=== PATIENT | female | born 1960 | race Caucasian/White ===

== ENCOUNTER → 2019-12-24 08:17 | Outpatient (CLI) | payer OTHER, SELFPAY ==
[2019-12-24 08:50] LABS: Add Manual Diff / Slide Review NO; Basophils Absolute Auto 0 /uL (0-100); Basophils Percent Auto 0.2 % (0-2); Eosinophils Absolute Auto 400 /uL (0-450); Eosinophils Percent Auto 5.3 % (2-4); Hematocrit 41.4 % (36-46); Lymphocytes Absolute Auto 3800 /uL (1100-4500); Lymphocytes Percent Auto 53.9 % (25-40); Mean Corpuscular HGB Conc 33.8 % (30-36); Mean Corpuscular Hemoglobin 29.9 PG (26-34); Mean Corpuscular Volume 88.6 fL (80-100); Monocytes Absolute Auto 400 /uL (0-900); Neutrophils Absolute Auto 2500 /uL (1500-7000); Neutrophils Percent Auto 35.6 % (50-75); Platelet Count 399 X10^3/uL (150-400); Red Blood Cell Count 4.67 X10^6/uL (4.0-5.2); Red Cell Distribution Width 13.8 % (11.6-14.8); White Blood Cell Count 7.1 X10^3/uL (4.5-11.0)
[2019-12-24 09:06] LABS: Appearance Urine UA CLEAR; Bilirubin Urine UA NEGATIVE (NEGATIVE); Color Urine UA YELLOW; Glucose Urine UA NEGATIVE (Negative); Ketones Urine UA TRACE (NEGATIVE); Leukocyte Esterase Urine UA NEGATIVE (NEGATIVE); Nitrite Urine UA NEGATIVE (Negative); Occult Blood Urine UA NEGATIVE (Negative); Protein Urine UA NEGATIVE (Negative); Urobilinogen Urine UA 0.2 E.U./dL (0.2)
[2019-12-24 09:10] LABS: pH Urine UA 7.5 (4.5-8.0)
[2019-12-24 09:16] LABS: Alanine Aminotransferase 11 IU/L (<35); Albumin 4.4 g/dL (3.5-5.0); Albumin Globulin Ratio 1.5 (1.0-2.8); Alkaline Phosphatase 30 U/L (38-126); Aspartate Aminotransferase 19 IU/L (14-36); BUN Creatinine Ratio 28.6 (6-22); Bilirubin Total 0.7 mg/dL (0.2-1.3); Blood Urea Nitrogen 24 mg/dL (7-17); Calcium 9.3 mg/dL (8.4-10.2); Carbon Dioxide 28 mmol/L (22-32); Chloride 100 mmol/L (98-107); Estimated Glomerular Filt Rate > 60.0 mL/min (>60); Glucose 90 mg/dL (70-100); HDL Cholesterol 61 mg/dL (40-60); HEMOLYSIS < 15 (0-50); Potassium 4.7 mmol/L (3.4-5.1); Sodium 135 mmol/L (137-145); Total Protein 7.4 g/dL (6.3-8.2); Triglycerides 138 mg/dL (35-150); Uric Acid 4.7 mg/dL (2.5-6.2)
[2019-12-24 09:19] LABS: High Sensitivity CRP - Cardiac 1.8 mg/L (1.0-3.0)
[2019-12-24 09:20] LABS: Hemoglobin A1C% w Est Avg Glu 5.1 % (4.0-6.0)
[2019-12-24 09:21] LABS: Cholesterol 340 mg/dL (140-199); LDL Cholesterol Calculated 251 mg/dL (<100)
[2019-12-24 10:05] LABS: Free T3, Triiodothyronine Free 1.98 pg/mL (2.77-5.27); Free T4, Direct Thyroxine 1.02 ng/dL (0.78-2.19)
[2019-12-27 15:40] LABS: ANA Screen, IFA Positive (.)
== END ==
PROVIDERS: PCP Nurse Practitioner; Referring Provider Nurse Practitioner; Visit Provider Nurse Practitioner
DX: E28.2 Polycystic ovarian syndrome (principal); E78.5 Hyperlipidemia, unspecified; E88.81 Metabolic syndrome and other insulin resistance; F32.9 Major depressive disorder, single episode, unspecified; G25.0 Essential tremor; G25.81 Restless legs syndrome; R53.82 Chronic fatigue, unspecified; Z78.0 Asymptomatic menopausal state; M79.7 Fibromyalgia
CPT/HCPCS: 36415; 80053; 80061; 81003; 83036; 83525; 84439; 84443; 84481; 84550; 85025; 86038; 86140

== ENCOUNTER → 2021-01-22 08:43 | Outpatient (CLI) | payer OTHER, SELFPAY ==
[2021-01-22 09:36] LABS: Add Manual Diff / Slide Review NO; Basophils Absolute Auto 0 /uL (0-100); Basophils Percent Auto 0.2 % (0-2); Eosinophils Absolute Auto 500 /uL (0-450); Hematocrit 43.2 % (36-46); Hemoglobin 14.4 g/dL (12.0-16.0); Lymphocytes Absolute Auto 4500 /uL (1100-4500); Lymphocytes Percent Auto 47.6 % (25-40); Mean Corpuscular HGB Conc 33.4 % (30-36); Mean Corpuscular Hemoglobin 29.8 PG (26-34); Mean Corpuscular Volume 89.2 fL (80-100); Monocytes Absolute Auto 500 /uL (0-900); Monocytes Percent Auto 5.6 % (3-14); Neutrophils Absolute Auto 3900 /uL (1500-7000); Neutrophils Percent Auto 41.6 % (50-75); Platelet Count 416 X10^3/uL (150-400); Red Blood Cell Count 4.84 X10^6/uL (4.0-5.2); Red Cell Distribution Width 14.2 % (11.6-14.8); White Blood Cell Count 9.5 X10^3/uL (4.5-11.0)
[2021-01-22 09:42] LABS: Hemoglobin A1C% w Est Avg Glu 5.1 % (4.0-6.0)
[2021-01-22 10:07] LABS: Alanine Aminotransferase 8 IU/L (<35); Albumin 4.3 g/dL (3.5-5.0); Albumin Globulin Ratio 1.5 (1.0-2.8); Alkaline Phosphatase 29 U/L (38-126); Aspartate Aminotransferase 17 IU/L (14-36); BUN Creatinine Ratio 29.2 (6-22); Bilirubin Total 0.7 mg/dL (0.2-1.3); Blood Urea Nitrogen 26 mg/dL (7-17); Calcium 9.2 mg/dL (8.4-10.2); Carbon Dioxide 27 mmol/L (22-32); Chloride 101 mmol/L (98-107); Cholesterol 305 mg/dL (140-199); Estimated Glomerular Filt Rate > 60.0 mL/min (>60); Globulin 2.9 g/dL (1.7-4.1); Glucose 94 mg/dL (80-110); HDL Cholesterol 58 mg/dL (40-60); HEMOLYSIS < 15 (0-50); LDL Cholesterol Calculated 216 mg/dL (<100); Potassium 4.1 mmol/L (3.4-5.1); Sodium 135 mmol/L (137-145); Total Protein 7.2 g/dL (6.3-8.2); Triglycerides 156 mg/dL (35-150)
[2021-01-22 10:37] LABS: TSH w/ Reflex to FT4 0.39 uIU/mL (0.47-4.68)
[2021-01-22 11:39] LABS: Free T4, Direct Thyroxine 1.13 ng/dL (0.78-2.19)
== END ==
PROVIDERS: PCP Nurse Practitioner; Referring Provider Nurse Practitioner; Visit Provider Nurse Practitioner
DX: Z00.00 Encounter for general adult medical examination without abnormal findings (principal); E78.5 Hyperlipidemia, unspecified; E88.81 Metabolic syndrome and other insulin resistance; F32.9 Major depressive disorder, single episode, unspecified; R53.82 Chronic fatigue, unspecified
CPT/HCPCS: 36415; 80053; 80061; 83036; 84439; 84443; 85025

== ENCOUNTER → 2021-06-08 12:03 | Outpatient (CLI) | payer OTHER, SELFPAY ==
[2021-06-08 14:47] LABS: Free T3, Triiodothyronine Free 1.96 pg/mL (2.77-5.27); Free T4, Direct Thyroxine 0.93 ng/dL (0.78-2.19)
[2021-06-08 15:00] LABS: Thyroid Stimulating Hormone 0.175 uIU/mL (0.47-4.68)
== END ==
PROVIDERS: PCP Nurse Practitioner; Referring Provider Nurse Practitioner; Visit Provider Nurse Practitioner
DX: R79.89 Other specified abnormal findings of blood chemistry (principal)
CPT/HCPCS: 36415; 84439; 84443; 84481

== ENCOUNTER → 2021-06-08 12:34 | Outpatient (CLI) | payer OTHER, SELFPAY ==
[2021-06-08] MEDS: COVID-19 VACC #3, MRNA(MOD) 50 MCG/0.25 ML VIAL IM (12:38)
== END ==
PROVIDERS: PCP Nurse Practitioner; Visit Provider Internal Medicine
DX: Z23 Encounter for immunization (principal)
CPT/HCPCS: 0013A; 91301

== ENCOUNTER 2021-09-04 10:16 | Emergency (ER) | payer OTHER, SELFPAY ==
[2021-09-04] VITALS (9 sets, daily range): BP systolic 106–159; BP diastolic 57–70; PULSE 55–73; RESP 10–23; TEMP 37.4; O2SAT 97–100; BMI 25.0
--- NOTE | 2021-09-04 10:28 | DI.CT.S_ITS ---
PROCEDURE: CT STROKE INDICATIONS: possible stroke TECHNIQUE: Noncontrast 4.5 mm thick angled axial sections acquired from the foramen magnum to the vertex, with coronal reformats. For radiation dose reduction, the following was used: automated exposure control, adjustment of mA and/or kV according to patient size. COMPARISON: None. FINDINGS: Image quality: Excellent. CSF spaces: Basal cisterns are patent. No extra-axial fluid collections. The ventricles are symmetric in size and shape. Brain: No intracranial bleeds or masses. There is cerebral volume loss for age, with resultant ventricular and sulcal prominence. Slightly more prominent CSF space in the left parietal area is likely congenital or related to focal atrophy. There are mild periventricular and deep white matter chronic small vessel ischemic changes. There is intracranial internal carotid artery atherosclerosis. Skull and face: Calvarium and visualized facial bones appear intact, without suspicious lesions. Sinuses: Visualized sinuses and mastoids are clear. IMPRESSION: 1. No acute intracranial abnormalities. The result was discussed with Dr. Bella on 09/04/2021 at 10:39 a.m. This study fulfills neurological imaging criteria for inclusion or exclusion of acute stroke therapies based on available published neurological guidelines. Dictated by: Jimmy Engle M.D. on 09/04/2021 at 10:41 Approved by: Jimmy Engle M.D. on 09/04/2021 at 10:45
--- NOTE | 2021-09-04 10:28 | DI.RAD.S_ITS ---
PROCEDURE: XR CHEST 1V INDICATIONS: Possible stroke TECHNIQUE: One view of the chest was acquired. COMPARISON: None. FINDINGS: Surgical changes and devices: None. Lungs and pleura: On this semiupright portable chest examination, no large pneumothorax or large pleural effusions are seen. No focal infiltrates are seen. Mediastinum: Mediastinal contours appear normal. Heart size is normal. Bones and chest wall: No suspicious bony lesions. Overlying soft tissues appear unremarkable. IMPRESSION: Portable chest within normal limits. Dictated by: Kirit Caldwell M.D. on 09/04/2021 at 10:27 Approved by: Kirit Caldwell M.D. on 09/04/2021 at 10:27
--- NOTE | 2021-09-04 10:46 | ED_ITS ---
HPI - Neuro Symptoms/Deficit General Chief Complaint: Neuro Symptoms/Deficit Stated Complaint: Poss TIA referred by Natalie Tam Time Seen by Provider: 09/04/21 10:31 Source: patient and family (spouse) Mode of arrival: Wheelchair Limitations: no limitations History of Present Illness HPI Narrative: This is a 60-year-old female with history neurologic disorder that is described as still being worked up, she is being worked up for orthostatic tachycardia and follows with [facility] in [place]. Patient is on pyridostigmine 60 mg b.i.d., fluoxetine, dicyclomine, doxepin, estradiol metop rolol extended release. She states that last night about 8:00 p.m. she is reading her phone when her vision became blurry and assorted she felt like her eyeballs her being squeezed and she had which she describes as some double vision. She states she felt like she was talking weird in her tongue was not working well. She has some paresthesias on her right trunk. She felt dizzy and had vertigo type symptoms but states she does have a history of vertigo but this felt a little different. She performed her own fast exam and did not appreciate any changes to facial droop or weakness. She states her symptoms resolved. She spoke with her her tongue still felt weird but he did not appreciate any changes to her speech. Both she and her states she felt cold and clammy and sweaty. She denies any headaches, chest pain or shortness of breath, no nausea or vomiting currently no diarrhea constipation. She did have any weakness at this time but did feel like her walking was difficult. All her symptoms resolved she got up at 10:00 p.m. and states she was still asymptomatic and then woke up this morning contacted her primary care who recommended she come here for about. She does have a history of lower body lift, she states NSAIDs and aspirin typically give her ulcers. Denies tobacco, no alcohol, she uses CBD and a vape pen but no other recreational drugs. Natalie tam is her primary care provider. On Anticoagulants: No Related Data Home Medications Medication Instructions Recorded Confirmed L carnitine 1,000 mg PO .QD 07/27/19 07/06/21 vitamin E (dl, acetate) 180 mg 400 unit PO DAILY 07/27/19 07/06/21 (400 unit) capsule melatonin 10 mg capsule 10 mg PO BEDTIME PRN 09/29/19 07/06/21 resveratrol-quercetin 100 mg-100 tab PO 07/06/21 07/06/21 mg tablet pyridostigmine bromide 60 mg tablet 45 mg PO BID tab 08/17/21 08/17/21 Previous Rx's Medication Instructions Recorded Disabled Parking Permit See Rx Instructions .ROUTE 10/11/20 .COMPLEX #1 unit estradiol-norethindrone acet 1 1 tab PO DAILY #90 tab 10/23/20 mg-0.5 mg tablet fluoxetine 40 mg capsule 40 mg PO DAILY #90 cap 10/23/20 metformin 500 mg tablet 500 mg PO BID #180 tab 10/23/20 dicyclomine 10 mg capsule 10 mg PO TID PRN #30 cap 08/17/21 doxepin 3 mg tablet 3 mg PO BEDTIME PRN #60 tab 08/17/21 metoprolol succinate 25 mg 25 mg PO DAILY #30 tab 08/17/21 tablet,extended release 24 hr (Toprol XL) Allergies Allergy/AdvReac Type Severity Reaction Status Date / Time aspirin Allergy gastric Verified 09/04/21 10:28 ulcers gluten Allergy Verified 09/04/21 10:28 NSAIDS (Non-Steroidal Allergy gastric Verified 09/04/21 10:28 Anti-Inflamma ulcers Review of Systems Review of Systems ROS Unobtainable: All systems reviewed & are unremarkable except as noted in HPI and below Hematologic/Lymphatic On Anticoagulants: No Patient History Medical History Benign familial tremor CFS (chronic fatigue syndrome) (~2012) Chicken pox (~1969) Depression Dysautonomia orthostatic hypotension syndrome Fibromyalgia Gastric ulcer Hyperlipidemia (~2016) Insomnia Insulin resistance Intermittent pain Myalgic encephalomyelitis PCOS (polycystic ovarian syndrome) POTS (postural orthostatic tachycardia syndrome) Restless leg syndrome Surgical History Anesthesia History of section (~1987) History of surgery (~2014) Family History Father Hypertension Mother Diabetes mellitus History of heart disease Hypertension Mental health problem Sister History of heart disease Mental health problem Hypertension Sister Mental health problem Melanoma Grandfather History of heart disease Grandmother Lung disease Grandfather History of heart disease Grandmother Pneumonia Social History Smoking Status: Never smoker Smoking Status: Never smoker alcohol intake frequency: holidays/special occasions only Substance Use Type: does not use Exam Narrative Exam Narrative: GEN: well nourished, well appearing female, alert and oriented x 3, patient appears to be in mild distress. HEENT: Atraumatic, pupils are equal round reactive to light, extraocular movements are intact, nares are clear, TMs are clear with no fluid, there is no conjunctival pallor. Throat is clear without any exudates, erythema, tonsillar enlargement or uvular deviation, no facial droop. HEART: Regular rate and rhythm without murmur, clicks, rubs. LUNGS:Lungs clear to auscultation, no wheezes, rales, crackles, chest moves symmetrically ABD:bowel sounds normal, soft, non-tender, no guarding, rebound, rigidity, no masses noted, no hepatosplenomegaly :No CVA tenderness MSCL: Non-tender, no muscle atrophy, muscles strength 5/5 upper and lower extr emities, full range of motion. NEURO:CN 2-12 intact, sensation normal, finger nose finger test normal, heel barragan test normal, patient does have a mild tremor which is present particularly left greater than right in her upper extremities. Patient notes she has had this since age 13. SKIN: No rash, erythema or other skin changes. Initial Vital Signs Initial Vital Signs: Vital Signs Temperature 99.3 F 09/04/21 10:22 Pulse Rate 73 09/04/21 10:22 Respiratory Rate 14 09/04/21 10:22 Blood Pressure 159/70 H 09/04/21 10:22 Pulse Oximetry 97 09/04/21 10:22 Scores NIH Stroke Scale Level of Conciousness: Alert, keenly responsive Ask month/age: Answers both questions correctly. Open/close eyes, close hand: Performs both tasks correctly Best gaze horizontal: Normal Visual witt: No visual loss Facial palsy: Normal symetrical movement Left arm drift: No drift for full 10 sec Right arm drift: No drift for full 10 sec Left leg drift: No drift for full 5 sec Right leg drift: No drift for full 5 sec Limb ataxia: Absent Sensory on face/arms/legs: Normal, no sensory loss Best language: No aphasia, normal Dysarthria: Normal Extinction or inattention: No abnormality Total NIH Stroke scale score: 0 Course Orders Ordered: ED Orders 09/04/21 10:28 CT Stroke Stat XR chest 1V Stat EKG-12 Lead Stat 09/04/21 10:45 Complete Blood Count AUTO DIFF Stat Comprehensive Metabolic Panel Stat Partial Thromboplastin Time Stat Prothrombin Time INR Stat Troponin & CK Cardiac Panel Stat 09/04/21 11:41 CT angio head and neck Stat 09/04/21 12:01 Urine Drug Screen, Rapid Stat Discontinued Medications Sodium Chloride (Normal Saline 0.9%) 1,000 mls @ 1,000 mls/hr IV BOLUS ONE Stop: 09/04/21 13:59 Last Infusion: 09/04/21 14:05 Dose: 0 mls/hr Documented by: Admin: 09/04/21 13:16 Dose: 1,000 mls/hr Documented by: VIRY Lorazepam (Lorazepam 0.5 Mg Tablet) 1 mg PO NOW ONE Stop: 09/04/21 14:03 Reevaluation(s) Reevaluation #1: Patient continues to be asymptomatic here in the department. Vital Signs Vital signs: Vital Signs - 8 hr 09/04/21 11:30 09/04/21 12:05 09/04/21 12:27 Pulse Rate 65 63 57 L Respiratory Rate 23 14 11 L Blood Pressure 119/58 L Pulse Oximetry 97 100 97 09/04/21 12:30 09/04/21 13:00 09/04/21 14:05 Pulse Rate 55 L 58 L 60 Respiratory Rate 12 10 L Blood Pressure 110/58 L 106/57 L 113/57 L Pulse Oximetry 97 98 99 MDM - Neuro Symptoms/Deficit Lab Data Result diagrams: 09/04/21 10:45 09/04/21 10:45 Labs: Lab Results 09/04/21 09/04/21 09/04/21 Range/Units 10:45 10:45 10:45 WBC 10.0 (4.5-11.0) X10^3/uL RBC 4.68 (4.0-5.2) X10^6/uL Hgb 14.0 (12.0-16.0) g/dL Hct 40.9 (36-46) % MCV 87.3 (80-100) fL MCH 30.0 (26-34) PG MCHC 34.3 (30-36) % RDW 13.7 (11.6-14.8) % Plt Count 417 H (150-400) X10^3/uL Neut % (Auto) 47.2 L (50-75) % Lymph % (Auto) 42.6 H (25-40) % [place] % (Auto) 5.8 (3-14) % Eos % (Auto) 4.3 H (2-4) % Baso % (Auto) 0.1 (0-2) % Neut # (Auto) 4700 (1952-0815) /uL Lymph # (Auto) 4200 (8268-5983) /uL [place] # (Auto) 600 (0-900) /uL Eos # (Auto) 400 (0-450) /uL Baso # (Auto) 0 (0-100) /uL PT 11.2 (10.1-12.7) SECONDS INR 1.0 (0.9-1.3) APTT 31 (26.4-36.2) SECONDS Sodium 134 L (137-145) mmol/L Potassium 4.2 (3.4-5.1) mmol/L Chloride 101 (98-107) mmol/L Carbon Dioxide 28 (22-32) mmol/L BUN 24 H (7-17) mg/dL Creatinine 0.84 (0.52-1.04) mg/dL Estimated GFR > 60.0 (>60) mL/min BUN/Creatinine Ratio 28.6 H (6-22) Glucose 98 (80-110) mg/dL Calcium 9.3 (8.4-10.2) mg/dL Total Bilirubin 0.6 (0.2-1.3) mg/dL AST 17 (14-36) IU/L ALT 9 (<35) IU/L Alkaline Phosphatase 26 L (38-126) U/L Total Creatine Kinase 36 (30-135) U/L CK-MB (CK-2) TNP CK-MB (CK-2) Rel Index TNP Troponin I < 0.012 (0.01-0.034) ng/mL Total Protein 7.0 (6.3-8.2) g/dL Albumin 4.2 (3.5-5.0) g/dL Globulin 2.8 (1.7-4.1) g/dL Albumin/Globulin Ratio 1.5 (1.0-2.8) U Opiates 300ng/mL cut (Negative) Ur Oxycodone Screen (Negative) Urine Methadone Screen (Negative) Ur Barbiturates Screen (Negative) U Tricyclic Antidepress (Negative) Ur Phencyclidine Scrn (Negative) Ur Amphetamines Screen (Negative) U Methamphetamines Scrn (Negative) Ur MDMA Scrn (Ecstasy) (Negative) U Benzodiazepines Scrn (Negative) Urine Cocaine Screen (Negative) U Marijuana (THC) Screen (Negative) 09/04/21 Range/Units 12:01 WBC (4.5-11.0) X10^3/uL RBC (4.0-5.2) X10^6/uL Hgb (12.0-16.0) g/dL Hct (36-46) % MCV (80-100) fL MCH (26-34) PG MCHC (30-36) % RDW (11.6-14.8) % Plt Count (150-400) X10^3/uL Neut % (Auto) (50-75) % Lymph % (Auto) (25-40) % [place] % (Auto) (3-14) % Eos % (Auto) (2-4) % Baso % (Auto) (0-2) % Neut # (Auto) (6146-1419) /uL Lymph # (Auto) (4704-9773) /uL [place] # (Auto) (0-900) /uL Eos # (Auto) (0-450) /uL Baso # (Auto) (0-100) /uL PT (10.1-12.7) SECONDS INR (0.9-1.3) APTT (26.4-36.2) SECONDS Sodium (137-145) mmol/L Potassium (3.4-5.1) mmol/L Chloride (98-107) mmol/L Carbon Dioxide (22-32) mmol/L BUN (7-17) mg/dL Creatinine (0.52-1.04) mg/dL Estimated GFR (>60) mL/min BUN/Creatinine Ratio (6-22) Glucose (80-110) mg/dL Calcium (8.4-10.2) mg/dL Total Bilirubin (0.2-1.3) mg/dL AST (14-36) IU/L ALT (<35) IU/L Alkaline Phosphatase (38-126) U/L Total Creatine Kinase (30-135) U/L CK-MB (CK-2) CK-MB (CK-2) Rel Index Troponin I (0.01-0.034) ng/mL Total Protein (6.3-8.2) g/dL Albumin (3.5-5.0) g/dL Globulin (1.7-4.1) g/dL Albumin/Globulin Ratio (1.0-2.8) U Opiates 300ng/mL cut Negative (Negative) Ur Oxycodone Screen Negative (Negative) Urine Methadone Screen Negative (Negative) Ur Barbiturates Screen Negative (Negative) U Tricyclic Antidepress Positive H (Negative) Ur Phencyclidine Scrn Negative (Negative) Ur Amphetamines Screen Negative (Negative) U Methamphetamines Scrn Negative (Negative) Ur MDMA Scrn (Ecstasy) Negative (Negative) U Benzodiazepines Scrn Negative (Negative) Urine Cocaine Screen Negative (Negative) U Marijuana (THC) Screen Positive H (Negative) Urine Dip Bedside Urine Glucose Negative Bedside Urine Bilirubin - Negative Bedside Urine Ketone - Negative Urine Specific [place] 1.010 Bedside Urine Occult Blood - Negative Bedside Urine pH 6.0 Bedside Urine Protein - Negative Bedside Urine Urobilinogen - Negative Bedside Urine Nitrite - Negative Bedside Urine Leukocytes - Negative Esterase Imaging Data CT scan - head: Radiologist's Impression: [place] [address] CT Scan Report Signed Patient: Leticia Boateng MR#: [id number] : 1960 Acct:[id number] Age/Sex: 60 / F Date of Service: 09/04/21 Loc: ED Accession Number: [id number] ?? Procedure: CT Stroke Ordering Provider: Avis Bella D.O. PROCEDURE:? CT STROKE ? INDICATIONS:? possible stroke ? TECHNIQUE:? Noncontrast 4.5 mm thick angled axial sections acquired from the foramen magnum to the vertex, with coronal reformats.? For radiation dose reduction, the following was used:? automated exposure control, adjustment of mA and/or kV according to patient size.? ? COMPARISON:? None. ? FINDINGS:? Image quality:? Excellent.? ? CSF spaces:? Basal cisterns are patent.? No extra-axial fluid collections.? The ventricles are symmetric in size and shape.? ? Brain:? No intracranial bleeds or masses.? There is cerebral volume loss for age, with resultant ventricular and sulcal prominence.? Slightly more prominent CSF space in the left parietal area is likely congenital or related to focal atrophy.? There are mild periventricular and deep white matter chronic small vessel ischemic changes.? There is intracranial internal carotid artery atherosclerosis.? ? Skull and face:? Calvarium and visualized facial bones appear intact, without suspicious lesions.? ? Sinuses:? Visualized sinuses and mastoids are clear.? ? IMPRESSION:? ? 1. No acute intracranial abnormalities. ? The result was discussed with Dr. Bella on 09/04/2021 at 10:39 a.m. ? This study fulfills neurological imaging criteria for inclusion or exclusion of acute stroke therapies based on available published neurological guidelines.? ? ? Dictated by: Jimmy Engle M.D. on 09/04/2021 at 10:41 ? ? Approved by: Jimmy Engle M.D. on 09/04/2021 at 10:45?? Chest x-ray: Radiologist's Impression: [place] [address] XRay Report Signed Patient: Leticia Boateng MR#: [id number] : 1960 Acct:[id number] Age/Sex: 60 / F Date of Service: 09/04/21 Loc: ED Accession Number: [id number] ?? Procedure: XR chest 1V Ordering Provider: Avis Bella D.O. PROCEDURE:? XR CHEST 1V ? INDICATIONS:? Possible stroke ? TECHNIQUE:? One view of the chest was acquired.? ? COMPARISON:? None. ? FINDINGS:? ? Surgical changes and devices:? None.? ? Lungs and pleura:? On this semiupright portable chest examination, no large pneumothorax or large pleural effusions are seen.? No focal infiltrates are seen.? ? Mediastinum:? Mediastinal contours appear normal.? Heart size is normal.? ? Bones and chest wall:? No suspicious bony lesions.? Overlying soft tissues appear unremarkable.? ? ? IMPRESSION:? ? Portable chest within normal limits. ? ? ? Dictated by: Kirit Caldwell M.D. on 09/04/2021 at 10:27 ? ? Approved by: Kirit Caldwell M.D. on 09/04/2021 at 10:27?? CTA - brain/neck: Radiologist's Impression: [address] [address] [address] Scan Report Signed Patient: Leticia Boateng MR#: [id number] : 1960 Acct:[id number] Age/Sex: 60 / F Date of Service: 09/04/21 Loc: ED Accession Number: [id number] ?? Procedure: CT angio head and neck Ordering Provider: Avis Bella D.O. PROCEDURE:? CT ANGIO HEAD AND NECK ? INDICATIONS:? double vision. speech change, tingling right side last night ? TECHNIQUE:? Noncontrast images were performed earlier in the day and not repeated.? ? After the administration of intravenous contrast, 1 mm thick sections acquired from the aortic arch through the [place] of [place].? Post-contrast 4.5 mm thick sections then re- acquired from the foramen magnum to the vertex.? 3-dimensional bazopjj-tozkhuadr-mdsfgjtffb (MIP) and/or volume rendering reformats were acquired of the central intracranial vasculature and neck separately. ? COMPARISON:? [facility], CR, XR CHEST 1V, 09/04/2021, 11:05.? [facility], CT, CT STROKE, 09/04/2021, 10:29. ? FINDINGS:? Image quality:? Excellent.? ? BRAIN:? CSF spaces:? Ventricles are normal in size and shape.? Basal cisterns are patent.? No extra-axial fluid collections.? ? Brain:? No midline shift.? No intracranial bleeds or masses.? Villar-white matter interface appears intact.? ? Skull and face:? Calvarium and facial bones appear intact, without suspicious lesions.? Orbits appear normal.? ? Sinuses:? Sinuses and mastoids are clear.? ? HEAD CT ANGIOGRAPHY:? Anterior circulation:? Intracranial internal carotid arteries are normal in size and flow.? There is a diminutive left A1 segment, with a corresponding robust right A1 segment.? This is considered to be a normal developmental variant of the [place] of [place], of typically no clinical consequence.? The flow within the paired anterior cerebral arteries is otherwise normal and symmetric.? The flow within the middle cerebral arteries is normal and symmetric.? The anterior communicating artery is seen.? No aneurysms are seen.? ? Posterior circulation:? Visualized portions of the vertebral arteries demonstrate normal caliber, and join to form a normal appearing basilar artery.? Flow within the posterior cerebral arteries is normal and symmetric.? No aneurysms are seen.? ? NECK CT ANGIOGRAPHY:? Carotid system:? The great vessels demonstrate a conventional anatomy as they arise from the aortic arch.? The origins of the common carotid arteries appear patent.? The common carotid arteries demonstrate normal caliber and courses.? The bifurcation regions demonstrate calcification and irregularity, yet without a hemodynamically significant stenosis.? The internal carotid arteries demonstrate normal calibers and courses.? ? Posterior circulation:? The origins of the vertebral arteries both appear widely patent.? The more superior extracranial portions of both vertebral arteries also demonstrate normal courses and calibers.? They join to form a normal appearing basilar artery.? ? Soft tissues:? Visualized neck soft tissues demonstrate no suspicious abnormalities.? ? Bones:? No suspicious bony lesions.? Visualized cervical spine appears normally aligned.? [id number] cervical spine degenerative changes can be seen. ? IMPRESSION:? No hemodynamically significant stenosis can be seen within the arteries of the head or the arteries neck. ? Any quantitative measurements of stenosis were performed using NASCET criteria.? ? ? Dictated by: Kirit Caldwell M.D. on 09/04/2021 at 11:15 ? ? Approved by: Kirit Caldwell M.D. on 09/04/2021 at 11:17?? ECG Data Attestation: I personally reviewed and interpreted this ECG as follows: Prior ECG tracings: not available for review Interpretation: Sinus rhythm rate of 63 OK 148 QRS is 74 and QTC of 427. No acute ST elevation depression noted. No priors for comparison. MDM Narrative Medical decision making narrative: This is a 60-year-old female comes emergency department for possible TIA but patient states she also has multiple neurologic issues and follows with a neurologist and takes pyridostigmine daily. Patient had some blurred vision possibly double vision, felt like she had some speech changes but never had any facial droop, she has some tingling on her right trunk but no weakness or tingling of upper or lower extremity described. This was last night and had since resolved she did have any additional episodes. She spoke with her primary care physician who referred her to be evaluated. She states that some of the symptoms occur her intermittently and seem to be associated with her disorder which is currently still being worked up. She does have a history of tremors return present H 13 and slowly worsened. Patient a had head CT, angiography and lab work with no acute changes. We discussed that TIA is certainly within the differential but with her neurologic history. Other possibilities are included. Observation was offered but patient defers with plan to follow-up outpatient. All questions answered. Stroke Core Measures Exclusion Criteria TPA in CVA: Symptom Onset >3 or 4.5 Hours Discharge Plan Departure Patient Disposition: Home Clinical Impression: Changes in vision Activity Restrictions/Additional Instructions: Follow up with your physician at your tele-visit on . As discussed your labs and imaging today so far are reassuring. We did discuss observation for further workup but your physician can help facilitate outpatient workup. Your neurologist is also an excellent resource and can help with this as well. You may continue home medications as prescribed. Please return for new or worsening symptoms, new facial droop, weakness, loss of sensation, it will be to lift or move her arm or leg, difficulty with ambulation, new speech changes, vision changes or other new or concerning symptoms. Prescriptions: No Action Disabled Parking Permit See Rx Instructions .ROUTE .COMPLEX Qty: 1 0RF Rx Instructions: I find this patient to be medically disabled and qualify for disabled parking as indicated and signed on the accompanying disabled parking application for individuals. doxepin 3 mg tablet 3 mg PO BEDTIME PRN (Reason: sleep) Qty: 60 3RF Rx Instructions: take 1 tab at bedtime daily, ok to increase to 2 tabs if not effective.. melatonin 10 mg capsule 10 mg PO BEDTIME [id number] Label Comments: 170mg daily fluoxetine 40 mg capsule 40 mg PO DAILY Qty: 90 3RF Rx Instructions: Take 1 cap by mouth daily for depression metformin 500 mg tablet 500 mg PO BID Qty: 180 3RF Rx Instructions: Take 1 tab twice daily for PCOS and insulin resistance estradiol-norethindrone acet 1-0.5 mg tablet 1 tab PO DAILY Qty: 90 3RF Rx Instructions: Take 1 tab by mouth daily for HRT pyridostigmine bromide 60 mg tablet 45 mg PO BID 0RF dicyclomine 10 mg capsule 10 mg PO TID PRN (Reason: diarrhea) Qty: 30 3RF Rx Instructions: Take 1 capsule up to three times per day as needed for diarrhea metoprolol succinate [Toprol XL] 25 mg tablet extended release 24 hr 25 mg PO DAILY Qty: 30 3RF Rx Instructions: Take 1 tab daily for long acting heart rate control L carnitine 1,000 mg PO .QD 0RF vitamin E (dl, acetate) 400 unit capsule 400 unit PO DAILY 0RF resveratrol-quercetin 100-100 mg tablet PO 0RF Referrals: Natalie Tam ARNP [Primary Care Provider] -
[2021-09-04 11:05] LABS: Add Manual Diff / Slide Review NO; Basophils Absolute Auto 0 /uL (0-100); Basophils Percent Auto 0.1 % (0-2); Eosinophils Absolute Auto 400 /uL (0-450); Eosinophils Percent Auto 4.3 % (2-4); Hematocrit 40.9 % (36-46); Lymphocytes Absolute Auto 4200 /uL (1100-4500); Lymphocytes Percent Auto 42.6 % (25-40); Mean Corpuscular HGB Conc 34.3 % (30-36); Mean Corpuscular Volume 87.3 fL (80-100); Monocytes Absolute Auto 600 /uL (0-900); Monocytes Percent Auto 5.8 % (3-14); Neutrophils Absolute Auto 4700 /uL (1500-7000); Neutrophils Percent Auto 47.2 % (50-75); Platelet Count 417 X10^3/uL (150-400); Prothrombin Time 11.2 SECONDS (10.1-12.7); Red Blood Cell Count 4.68 X10^6/uL (4.0-5.2); Red Cell Distribution Width 13.7 % (11.6-14.8)
[2021-09-04 11:07] LABS: PTT Partial Thromboplastin Tim 31 SECONDS (26.4-36.2)
[2021-09-04 11:11] LABS: Alanine Aminotransferase 9 IU/L (<35); Albumin 4.2 g/dL (3.5-5.0); Albumin Globulin Ratio 1.5 (1.0-2.8); Alkaline Phosphatase 26 U/L (38-126); Aspartate Aminotransferase 17 IU/L (14-36); BUN Creatinine Ratio 28.6 (6-22); Bilirubin Total 0.6 mg/dL (0.2-1.3); Blood Urea Nitrogen 24 mg/dL (7-17); Calcium 9.3 mg/dL (8.4-10.2); Carbon Dioxide 28 mmol/L (22-32); Chloride 101 mmol/L (98-107); Creatine Kinase 36 U/L (30-135); Estimated Glomerular Filt Rate > 60.0 mL/min (>60); Globulin 2.8 g/dL (1.7-4.1); Glucose 98 mg/dL (80-110); HEMOLYSIS < 15 (0-50); Potassium 4.2 mmol/L (3.4-5.1); Sodium 134 mmol/L (137-145)
--- NOTE | 2021-09-04 11:19 | PC.NURSE ---
Addendum entered by Blanca Duncan R.N. 09/04/21 11:45: pt also states she has dizziness and tingles normally. last night, all of these symptoms felt different and more. she was concerned, reported to her who states she felt cold and clammy but otherwise she seemed normal. Original Note: pt states she started with blurred vision and then had slurred speech, both have resolved the same
[2021-09-04 11:21] LABS: Troponin I < 0.012 ng/mL (0.01-0.034)
--- NOTE | 2021-09-04 11:41 | DI.CT.S_ITS ---
PROCEDURE: CT ANGIO HEAD AND NECK INDICATIONS: double vision. speech change, tingling right side last night TECHNIQUE: Noncontrast images were performed earlier in the day and not repeated. After the administration of intravenous contrast, 1 mm thick sections acquired from the aortic arch through the [place] of [place]. Post-contrast 4.5 mm thick sections then re-acquired from the foramen magnum to the vertex. 3-dimensional codxkox-yblcjbbwj-irmjzicxzt (MIP) and/or volume rendering reformats were acquired of the central intracranial vasculature and neck separately. COMPARISON: [facility], CR, XR CHEST 1V, 09/04/2021, 11:05. [facility], CT, CT STROKE, 09/04/2021, 10:29. FINDINGS: Image quality: Excellent. BRAIN: CSF spaces: Ventricles are normal in size and shape. Basal cisterns are patent. No extra-axial fluid collections. Brain: No midline shift. No intracranial bleeds or masses. Villar-white matter interface appears intact. Skull and face: Calvarium and facial bones appear intact, without suspicious lesions. Orbits appear normal. Sinuses: Sinuses and mastoids are clear. HEAD CT ANGIOGRAPHY: Anterior circulation: Intracranial internal carotid arteries are normal in size and flow. There is a diminutive left A1 segment, with a corresponding robust right A1 segment. This is considered to be a normal developmental variant of the [place] of [place], of typically no clinical consequence. The flow within the paired anterior cerebral arteries is otherwise normal and symmetric. The flow within the middle cerebral arteries is normal and symmetric. The anterior communicating artery is seen. No aneurysms are seen. Posterior circulation: Visualized portions of the vertebral arteries demonstrate normal caliber, and join to form a normal appearing basilar artery. Flow within the posterior cerebral arteries is normal and symmetric. No aneurysms are seen. NECK CT ANGIOGRAPHY: Carotid system: The great vessels demonstrate a conventional anatomy as they arise from the aortic arch. The origins of the common carotid arteries appear patent. The common carotid arteries demonstrate normal caliber and courses. The bifurcation regions demonstrate calcification and irregularity, yet without a hemodynamically significant stenosis. The internal carotid arteries demonstrate normal calibers and courses. Posterior circulation: The origins of the vertebral arteries both appear widely patent. The more superior extracranial portions of both vertebral arteries also demonstrate normal courses and calibers. They join to form a normal appearing basilar artery. Soft tissues: Visualized neck soft tissues demonstrate no suspicious abnormalities. Bones: No suspicious bony lesions. Visualized cervical spine appears normally aligned. Czks-ky-fjzdnnzv cervical spine degenerative changes can be seen. IMPRESSION: No hemodynamically significant stenosis can be seen within the arteries of the head or the arteries neck. Any quantitative measurements of stenosis were performed using NASCET criteria. Dictated by: Kirit Caldwell M.D. on 09/04/2021 at 11:15 Approved by: Kirit Caldwell M.D. on 09/04/2021 at 11:17
[2021-09-04 12:36] LABS: UR Morphine/Opiate cutoff 300 Negative (Negative); Ur Creatinine Normal (Normal); Ur Specific Gravity Normal (Normal); Urine Amphetamines Negative (Negative); Urine Barbiturates Negative (Negative); Urine Benzodiazepines Negative (Negative); Urine Cocaine Negative (Negative); Urine MDMA Negative (Negative); Urine Methadone Negative (Negative); Urine Methamphetamines Negative (Negative); Urine Oxycodone Negative (Negative); Urine Phencyclidine Negative (Negative); Urine Tetrahydrocannabinol Positive (Negative); Urine Tricyclic Antidepressant Positive (Negative); Urine pH Normal (Normal)
[2021-09-04] MEDS: SODIUM CHLORIDE 0.9% 1,000 ML 1000 ML IV (13:16)
== END 2021-09-04 14:12 | disposition home or self-care (01) ==
PROVIDERS: Emergency Provider Emergency Medicine; PCP Nurse Practitioner
DX: H53.8 Other visual disturbances (principal); R20.2 Paresthesia of skin; R42 Dizziness and giddiness; R03.0 Elevated blood-pressure reading, without diagnosis of hypertension
CPT/HCPCS: 36415; 70450; 70496; 70498; 71045; 80053; 80305; 81003; 82550; 84484; 85025; 85610; 85730; 93005; 93010; 96360; 99284; Q9967

== ENCOUNTER → 2021-09-08 15:13 | Outpatient (CLI) | payer OTHER, SELFPAY ==
--- NOTE | 2021-09-08 15:16 | DI.MRI.S_ITS ---
PROCEDURE: MR HEAD/BRAIN WO CON INDICATIONS: slurred speech, blurred vision, fatigue TECHNIQUE: Noncontrast axial T1 spin echo, axial T2 fast spin echo, sagittal and axial FLAIR, coronal T2 fast spin echo, axial gradient echo, axial diffusion and ADC through the brain. COMPARISON: [facility], CT, CT ANGIO HEAD AND NECK, 09/04/2021, 11:43. [facility], CT, CT STROKE, 09/04/2021, 10:29. FINDINGS: Image quality: Excellent. CSF Spaces: Basal cisterns are patent. No extra-axial fluid collections. Ventricles are normal in size and shape. There is a left frontal paramedian extra-axial right arachnoid cyst measuring 4.0 x 2.4 cm axial by 1.7 cm craniocaudal. Associated displacement of the posterior left superior frontal gyrus noted without edema. Brain: No intracranial masses or hemorrhage. Villar/white matter interface is normal. Brainstem appears normal. No evidence of restricted diffusion. Age-appropriate atrophy and multifocal white matter chronic ischemic change noted.. Normal intravascular flow voids are present. Skull and face: Calvarium has normal marrow signal. Orbits appear normal. Sinuses: Sinuses and mastoids are clear. IMPRESSION: 1. Atrophy and chronic ischemic change without acute infarct, hemorrhage or mass lesion. 2. Incidental extra-axial left frontal 4 cm arachnoid cyst Approved by: Armaan Fields M.D. on 09/08/2021 at 15:30
== END ==
PROVIDERS: PCP Nurse Practitioner; Referring Provider Nurse Practitioner; Visit Provider Nurse Practitioner
DX: G45.9 Transient cerebral ischemic attack, unspecified (principal); G93.0 Cerebral cysts
CPT/HCPCS: 70551

== ENCOUNTER → 2021-09-27 09:14 | Outpatient (CLI) | payer OTHER, SELFPAY ==
[2021-09-27 10:13] LABS: BUN Creatinine Ratio 25.7 (6-22); Blood Urea Nitrogen 19 mg/dL (7-17); Calcium 9.1 mg/dL (8.4-10.2); Carbon Dioxide 27 mmol/L (22-32); Chloride 103 mmol/L (98-107); Estimated Glomerular Filt Rate > 60.0 mL/min (>60); Glucose 89 mg/dL (80-110); HEMOLYSIS < 15 (0-50); Potassium 4.5 mmol/L (3.4-5.1); Sodium 134 mmol/L (137-145)
== END ==
PROVIDERS: PCP Nurse Practitioner; Referring Provider Nurse Practitioner; Visit Provider Nurse Practitioner
DX: E83.42 Hypomagnesemia (principal); E83.51 Hypocalcemia; E87.6 Hypokalemia
CPT/HCPCS: 36415; 80048; 83735

== ENCOUNTER → 2021-10-01 12:10 | Outpatient (CLI) | payer OTHER, SELFPAY ==
--- NOTE | 2021-10-01 12:11 | DI.US.S_ITS ---
PROCEDURE: US THYROID INDICATIONS: Hyperthyroidism TECHNIQUE: Real-time scanning was performed of the thyroid gland, with image documentation. COMPARISON: None. FINDINGS: Right: Thyroid lobe measures 4.5 x 1.8 x 1.4 cm, and demonstrates a small nodule. Left: Thyroid lobe measures 4.1 x 1.6 x 1.3 cm, and demonstrates a small nodule. Isthmus: 2 point mm thick. Nodule number: 1 Location: Left inferior Size: 0.5 x 0.4 x 0.4 cm. Composition: Spongiform Echogenicity: Hyperechoic and anechoic Shape: wider than tall. Margins: Smooth Echogenic foci: None Total points: 1 ACR TI-RADS category: 2 Recommendations: No follow-up necessary. Nodule number: 2 Location: Right superomedial thyroid Size: 0.8 x 0.5 x 0.4 cm. Composition: Predominantly solid Echogenicity: Hypoechoic Shape: wider than tall. Margins: Smooth Echogenic foci: None Total points: 4 ACR TI-RADS category: 4 Recommendations: No follow-up necessary based on size. IMPRESSION: Bilateral thyroid nodules as described above. ACR TI-RADS definitions and recommendations: TI-RADS 1 (benign): 0 points. FNA not needed. TI-RADS 2 (not suspicious): 2 points. FNA not needed. TI-RADS 3 (mildly suspicious): 3 points. * FNA if 2.5 cm or larger, follow up if 1.5 cm or larger (at 1, 3, and 5 years). TI-RADS 4 (moderately suspicious): 4-6 points. * FNA if 1.5 cm or larger, follow up if 1 cm or larger (at 1, 2, 3, and 5 years). TI-RADS 5 (highly suspicious): 7 points or more. * FNA if 1 cm or larger, follow up if 0.5 cm or larger (every year for 5 years). Dictated by: Karis Hester M.D. on 10/01/2021 at 14:44 Approved by: Karis Hester M.D. on 10/01/2021 at 16:53
== END ==
PROVIDERS: PCP Nurse Practitioner; Referring Provider Nurse Practitioner; Visit Provider Nurse Practitioner
DX: E04.2 Nontoxic multinodular goiter (principal); R79.89 Other specified abnormal findings of blood chemistry
CPT/HCPCS: 76536

== ENCOUNTER → 2021-11-09 16:23 | Outpatient (CLI) | payer OTHER, SELFPAY ==
[2021-11-09 18:02] LABS: Appearance Urine UA CLEAR; Bilirubin Urine UA NEGATIVE (NEGATIVE); Color Urine UA YELLOW; Glucose Urine UA TRACE g/dL (Negative); Ketones Urine UA NEGATIVE (NEGATIVE); Leukocyte Esterase Urine UA NEGATIVE (NEGATIVE); Nitrite Urine UA POSITIVE (Negative); Occult Blood Urine UA NEGATIVE (Negative); Protein Urine UA NEGATIVE (Negative); Specific Gravity Urine UA <=1.005 (1.000-1.035); Urobilinogen Urine UA 0.2 E.U./dL (0.2)
[2021-11-09 19:30] LABS: Bacteria Urine None Seen; Culture Indicated Urine Specimen Cultured; RBC Urine None Seen (0-5/HPF); WBC Urine None Seen (0-5/HPF)
== END ==
PROVIDERS: PCP Nurse Practitioner; Referring Provider Nurse Practitioner; Visit Provider Nurse Practitioner
DX: R30.0 Dysuria (principal)
CPT/HCPCS: 81001; 87086

== ENCOUNTER → 2021-11-13 09:38 | Outpatient (CLI) | payer OTHER, SELFPAY ==
[2021-11-13 12:32] LABS: Follicle Stimulating Hormone 3.58 mIU/mL; Luteinizing Hormone 2.72 mIU/mL
[2021-11-13 12:36] LABS: Prolactin 3.2 ng/mL (3.0-18.6)
[2021-11-13 13:47] LABS: Cortisol AM (Before 10AM) 20.2 ug/dL (4.46-22.7)
[2021-11-16 08:57] LABS: Estrogen 413 pg/mL (.)
== END ==
PROVIDERS: PCP Nurse Practitioner; Referring Provider Nurse Practitioner; Visit Provider Nurse Practitioner
DX: E23.7 Disorder of pituitary gland, unspecified (principal); R79.89 Other specified abnormal findings of blood chemistry
CPT/HCPCS: 36415; 82533; 82672; 83001; 83002; 84146; 84403

== ENCOUNTER → 2021-11-20 15:17 | Outpatient (CLI) | payer OTHER, SELFPAY | PROVIDERS: PCP Nurse Practitioner; Referring Provider Nurse Practitioner; Visit Provider Nurse Practitioner | DX: R30.0 Dysuria (principal) | CPT/HCPCS: 87070; 87205 ==

== ENCOUNTER → 2022-07-26 09:46 | Outpatient (CLI) | payer OTHER, SELFPAY ==
[2022-07-26 10:19] LABS: Add Manual Diff / Slide Review NO; Basophils Absolute Auto 0 /uL (0-100); Basophils Percent Auto 0.2 % (0-2); Eosinophils Absolute Auto 600 /uL (0-450); Eosinophils Percent Auto 6.2 % (2-4); Hematocrit 43.7 % (36-46); Hemoglobin 14.9 g/dL (12.0-16.0); Lymphocytes Absolute Auto 4300 /uL (1100-4500); Lymphocytes Percent Auto 47.3 % (25-40); Mean Corpuscular Hemoglobin 30.1 PG (26-34); Mean Corpuscular Volume 88.4 fL (80-100); Monocytes Absolute Auto 500 /uL (0-900); Monocytes Percent Auto 5.6 % (3-14); Neutrophils Absolute Auto 3700 /uL (1500-7000); Neutrophils Percent Auto 40.7 % (50-75); Platelet Count 384 X10^3/uL (150-400); Red Blood Cell Count 4.94 X10^6/uL (4.0-5.2); Red Cell Distribution Width 13.9 % (11.6-14.8)
[2022-07-26 10:28] LABS: Hemoglobin A1C% w Est Avg Glu 5.2 % (4.0-6.0)
[2022-07-26 10:52] LABS: Creatinine Urine Random 131.8 mg/dL
[2022-07-26 10:56] LABS: Microalbumin Urine Random 0.8 mg/dL (0-1.6)
[2022-07-26 10:57] LABS: Alanine Aminotransferase 29 IU/L (<35); Albumin 4.3 g/dL (3.5-5.0); Albumin Globulin Ratio 1.3 (1.0-2.8); Alkaline Phosphatase 38 U/L (38-126); Aspartate Aminotransferase 27 IU/L (14-36); BUN Creatinine Ratio 29.8 (6-22); Bilirubin Total 0.7 mg/dL (0.2-1.3); Blood Urea Nitrogen 25 mg/dL (7-17); Calcium 9.4 mg/dL (8.4-10.2); Carbon Dioxide 26 mmol/L (22-32); Chloride 98 mmol/L (98-107); Estimated Glomerular Filt Rate > 60 mL/min (>60); Globulin 3.2 g/dL (1.7-4.1); Glucose 87 mg/dL (80-110); HDL Cholesterol 56 mg/dL (40-60); HEMOLYSIS < 15 (0-50); Potassium 4.2 mmol/L (3.4-5.1); Sodium 134 mmol/L (137-145); Total Protein 7.5 g/dL (6.3-8.2); Triglycerides 363 mg/dL (35-150)
[2022-07-26 11:06] LABS: Cholesterol 375 mg/dL (140-199); LDL Cholesterol Calculated 246 mg/dL (<100)
[2022-07-26 11:09] LABS: Vitamin D 25 Hydroxy (D3) 75.9 ng/mL (30.0-100.0)
[2022-07-26 11:10] LABS: Free T3, Triiodothyronine Free 3.22 pg/mL (2.77-5.27); Free T4, Direct Thyroxine 0.91 ng/dL (0.78-2.19)
[2022-07-26 11:24] LABS: Thyroid Stimulating Hormone 1.89 uIU/mL (0.47-4.68)
[2022-07-26 11:53] LABS: Hep C Virus Ab w/Reflex Quant NEGATIVE s/c (NEGATIVE)
[2022-07-29 14:54] LABS: Fecal Immunochemical Test Negative (Negative)
== END ==
PROVIDERS: PCP Nurse Practitioner; Referring Provider Nurse Practitioner; Visit Provider Nurse Practitioner
DX: Z00.00 Encounter for general adult medical examination without abnormal findings (principal); E88.81 Metabolic syndrome and other insulin resistance; F33.1 Major depressive disorder, recurrent, moderate; G47.01 Insomnia due to medical condition; R79.89 Other specified abnormal findings of blood chemistry; Z11.59 Encounter for screening for other viral diseases; E67.3 Hypervitaminosis D; Z12.11 Encounter for screening for malignant neoplasm of colon
CPT/HCPCS: 36415; 80053; 80061; 82043; 82274; 82306; 82570; 83036; 84439; 84443; 84481; 85025; 86803

== ENCOUNTER → 2023-01-10 10:05 | Outpatient (CLI) | payer OTHER, SELFPAY ==
--- NOTE | 2023-01-10 10:06 | DI.MG.S_ITS ---
BILATERAL DIGITAL SCREENING MAMMOGRAM 3D/2D WITH CAD: 01/10/2023 CLINICAL: Routine screening. Comparison is made to exams dated: 06/04/2018 mammogram, 07/11/2015 mammogram, and 09/07/2010 mammogram - Outside facility. There are scattered areas of fibroglandular density in both breasts (category b / 25%-50% glandular tissue). Current study was also evaluated with a Computer Aided Detection (CAD) system. No significant masses, calcifications, or other findings are seen in either breast. There has been no significant interval change. IMPRESSION: NEGATIVE There is no mammographic evidence of malignancy. A 1 year screening mammogram is recommended. Based on the Tyrer Cuzick model (a risk assessment model) the patient's lifetime risk is 5.7% and her 10 year risk is 2.4%. According to the ACR, ACS, and NCCN guidelines, an annual breast MRI exam along with mammogram is recommended if the patient's lifetime risk is 20% or greater. This exam was interpreted at Station ID: [id number]. NOTE: For mammograms, a report in lay terms will be sent to the patient. Approximately 15% of breast malignancies will not be visualized mammographically. In the management of a palpable breast mass, a negative mammogram must not discourage biopsy of a clinically suspicious lesion. Electronically Signed By: Mata fernández/jose:01/10/2023 14:52:27 letter sent: Normal Exam ACR BI-RADS Category 1: Negative [id number]
== END ==
PROVIDERS: PCP Nurse Practitioner; Referring Provider Nurse Practitioner; Visit Provider Nurse Practitioner
DX: Z12.31 Encounter for screening mammogram for malignant neoplasm of breast (principal)
CPT/HCPCS: 77063; 77067

== ENCOUNTER → 2023-08-08 09:59 | Outpatient (CLI) | payer OTHER, SELFPAY ==
[2023-08-08 11:04] LABS: Add Manual Diff / Slide Review NO; Basophils Absolute Auto 0 /uL (0-100); Basophils Percent Auto 0.3 % (0-2); Eosinophils Absolute Auto 800 /uL (0-450); Eosinophils Percent Auto 7.6 % (2-4); Hematocrit 43.9 % (36-46); Hemoglobin 14.6 g/dL (12.0-16.0); Lymphocytes Absolute Auto 4500 /uL (1100-4500); Lymphocytes Percent Auto 45.6 % (25-40); Mean Corpuscular HGB Conc 33.2 % (30-36); Mean Corpuscular Hemoglobin 29.6 PG (26-34); Mean Corpuscular Volume 89.2 fL (80-100); Monocytes Absolute Auto 500 /uL (0-900); Monocytes Percent Auto 5.2 % (3-14); Neutrophils Absolute Auto 4100 /uL (1500-7000); Neutrophils Percent Auto 41.3 % (50-75); Platelet Count 415 X10^3/uL (150-400); Red Blood Cell Count 4.92 X10^6/uL (4.0-5.2); Red Cell Distribution Width 13.6 % (11.6-14.8)
[2023-08-08 11:13] LABS: Hemoglobin A1C% w Est Avg Glu 5.3 % (4.0-6.0)
[2023-08-08 11:25] LABS: Alanine Aminotransferase 11 IU/L (<35); Albumin 4.2 g/dL (3.5-5.0); Albumin Globulin Ratio 1.3 (1.0-2.8); Alkaline Phosphatase 31 U/L (38-126); Aspartate Aminotransferase 18 IU/L (14-36); BUN Creatinine Ratio 22.9 (6-22); Bilirubin Total 0.7 mg/dL (0.2-1.3); Blood Urea Nitrogen 19 mg/dL (7-17); Carbon Dioxide 25 mmol/L (22-32); Chloride 103 mmol/L (98-107); Cholesterol 202 mg/dL (140-199); Estimated Glomerular Filt Rate > 60 mL/min (>60); Globulin 3.2 g/dL (1.7-4.1); Glucose 102 mg/dL (80-110); HDL Cholesterol 46 mg/dL (40-60); HEMOLYSIS < 15 (0-50); LDL Cholesterol Calculated 114 mg/dL (<100); Potassium 3.8 mmol/L (3.4-5.1); Sodium 134 mmol/L (137-145); Total Protein 7.4 g/dL (6.3-8.2); Triglycerides 211 mg/dL (35-150)
[2023-08-08 11:26] LABS: HEMOLYSIS < 15 (0-50); Iron 117 ug/dL (37-170)
[2023-08-08 11:40] LABS: Percent Iron Saturation 34 % (15-50); Total Iron Binding Capacity 340 ug/dL (265-497); Transferrin 310 mg/dL (206-381)
[2023-08-08 11:43] LABS: Free T3, Triiodothyronine Free 2.19 pg/mL (2.77-5.27); Free T4, Direct Thyroxine 0.94 ng/dL (0.78-2.19)
[2023-08-08 11:56] LABS: Thyroid Stimulating Hormone 2.51 uIU/mL (0.47-4.68)
[2023-08-08 12:12] LABS: Creatinine Urine Random 309.6 mg/dL
[2023-08-08 12:17] LABS: Microalbumi Creatinin Ratio Ur 6.1 ug/mg CR (<30); Microalbumin Urine Random 1.9 mg/dL (0-1.6)
[2023-08-08 12:18] LABS: Vitamin B12 > 1000 pg/mL (239-931)
[2023-08-14 17:40] LABS: Thyroglobulin Antibodies < 1.0 IU/mL (0.0-0.9)
[2023-08-17 18:07] LABS: Thyroid Peroxidase Antibodies 13
== END ==
PROVIDERS: PCP Nurse Practitioner; Referring Provider Nurse Practitioner; Visit Provider Nurse Practitioner
DX: R53.83 Other fatigue (principal); E78.2 Mixed hyperlipidemia; G45.9 Transient cerebral ischemic attack, unspecified; R79.89 Other specified abnormal findings of blood chemistry; G47.00 Insomnia, unspecified; K52.9 Noninfective gastroenteritis and colitis, unspecified; F32.9 Major depressive disorder, single episode, unspecified; M79.7 Fibromyalgia; E78.5 Hyperlipidemia, unspecified; Z79.899 Other long term (current) drug therapy; E88.819 Insulin resistance, unspecified
CPT/HCPCS: 36415; 80053; 80061; 82043; 82570; 82607; 83036; 83540; 83550; 84432; 84439; 84443; 84481; 85025; 86376; 86800

== ENCOUNTER → 2024-03-10 07:17 | Outpatient (CLI) | payer OTHER, SELFPAY ==
[2024-03-10 08:31] LABS: Alanine Aminotransferase 12 IU/L (<35); Albumin 4.1 g/dL (3.5-5.0); Albumin Globulin Ratio 1.7 (1.0-2.8); Alkaline Phosphatase 39 U/L (38-126); Aspartate Aminotransferase 19 IU/L (14-36); BUN Creatinine Ratio 27.8 (6-22); Bilirubin Total 0.5 mg/dL (0.2-1.3); Blood Urea Nitrogen 27 mg/dL (7-17); Carbon Dioxide 27 mmol/L (22-32); Chloride 102 mmol/L (98-107); Estimated Glomerular Filt Rate > 60 mL/min (>60); Globulin 2.4 g/dL (1.7-4.1); Glucose 94 mg/dL (80-110); HEMOLYSIS < 15 (0-50); Potassium 3.9 mmol/L (3.4-5.1); Sodium 136 mmol/L (137-145); Total Protein 6.5 g/dL (6.3-8.2)
[2024-03-10 08:40] LABS: Free T3, Triiodothyronine Free 2.27 pg/mL (2.77-5.27); Free T4, Direct Thyroxine 1.07 ng/dL (0.78-2.19)
[2024-03-10 08:53] LABS: Thyroid Stimulating Hormone 1.78 uIU/mL (0.47-4.68)
== END ==
PROVIDERS: PCP Nurse Practitioner; Referring Provider Nurse Practitioner; Visit Provider Nurse Practitioner
DX: B35.1 Tinea unguium (principal); Z79.899 Other long term (current) drug therapy; E03.9 Hypothyroidism, unspecified
CPT/HCPCS: 36415; 80053; 84439; 84443; 84481

== ENCOUNTER → 2024-03-18 07:19 | Outpatient (CLI) | payer OTHER, SELFPAY ==
[2024-03-18 07:50] LABS: Add Manual Diff / Slide Review NO; Basophils Absolute Auto 0 /uL (0-100); Basophils Percent Auto 0.3 % (0-2); Eosinophils Absolute Auto 700 /uL (0-450); Eosinophils Percent Auto 6.1 % (2-4); Hematocrit 41.8 % (36-46); Lymphocytes Absolute Auto 5900 /uL (1100-4500); Lymphocytes Percent Auto 51.2 % (25-40); Mean Corpuscular HGB Conc 33.6 % (30-36); Mean Corpuscular Hemoglobin 30.4 PG (26-34); Mean Corpuscular Volume 90.6 fL (80-100); Monocytes Absolute Auto 700 /uL (0-900); Monocytes Percent Auto 5.8 % (3-14); Neutrophils Absolute Auto 4200 /uL (1500-7000); Neutrophils Percent Auto 36.6 % (50-75); Platelet Count 455 X10^3/uL (150-400); Red Blood Cell Count 4.61 X10^6/uL (4.0-5.2); Red Cell Distribution Width 13.9 % (11.6-14.8); White Blood Cell Count 11.5 X10^3/uL (4.5-11.0)
[2024-03-18 08:05] LABS: HEMOLYSIS < 15 (0-50); Iron 76 ug/dL (37-170)
[2024-03-18 08:10] LABS: Alanine Aminotransferase 13 IU/L (<35); Albumin 4.1 g/dL (3.5-5.0); Albumin Globulin Ratio 1.6 (1.0-2.8); Alkaline Phosphatase 43 U/L (38-126); Aspartate Aminotransferase 22 IU/L (14-36); BUN Creatinine Ratio 34.1 (6-22); Bilirubin Total 0.5 mg/dL (0.2-1.3); Blood Urea Nitrogen 31 mg/dL (7-17); Calcium 8.7 mg/dL (8.4-10.2); Carbon Dioxide 20 mmol/L (22-32); Chloride 106 mmol/L (98-107); Cholesterol 284 mg/dL (140-199); Estimated Glomerular Filt Rate > 60 mL/min (>60); Globulin 2.6 g/dL (1.7-4.1); Glucose 90 mg/dL (80-110); HDL Cholesterol 39 mg/dL (40-60); HEMOLYSIS 16 (0-50); LDL Cholesterol Calculated 185 mg/dL (<100); Potassium 3.8 mmol/L (3.4-5.1); Sodium 135 mmol/L (137-145); Total Protein 6.7 g/dL (6.3-8.2); Triglycerides 302 mg/dL (35-150)
[2024-03-18 08:17] LABS: Creatinine Urine Random 52.34 mg/dL
[2024-03-18 08:19] LABS: Percent Iron Saturation 22 % (15-50); Total Iron Binding Capacity 345 ug/dL (265-497); Transferrin 272 mg/dL (206-381)
[2024-03-18 08:23] LABS: Free T3, Triiodothyronine Free 2.78 pg/mL (2.77-5.27); Free T4, Direct Thyroxine 0.99 ng/dL (0.78-2.19)
[2024-03-18 08:24] LABS: Progesterone, Total 0.96 ng/mL
[2024-03-18 08:25] LABS: Microalbumin Urine Random < 0.6 mg/dL (0-1.6); Vitamin D 25 Hydroxy (D3) 108 ng/mL (30.0-100.0)
[2024-03-18 08:37] LABS: Thyroid Stimulating Hormone 1.22 uIU/mL (0.47-4.68)
[2024-03-18 08:40] LABS: Estradiol, Total 186.8 pg/mL
[2024-03-18 08:56] LABS: Vitamin B12 914 pg/mL (239-931)
[2024-03-18 09:57] LABS: HIV 1 & 2 Ab/Ag 4th Gen Combo NEGATIVE (NEGATIVE)
== END ==
PROVIDERS: PCP Nurse Practitioner; Referring Provider Nurse Practitioner; Visit Provider Nurse Practitioner
DX: Z00.00 Encounter for general adult medical examination without abnormal findings (principal); R53.83 Other fatigue; D64.9 Anemia, unspecified; E78.2 Mixed hyperlipidemia; K25.9 Gastric ulcer, unspecified as acute or chronic, without hemorrhage or perforation; F33.1 Major depressive disorder, recurrent, moderate; Z78.0 Asymptomatic menopausal state; M79.7 Fibromyalgia; I95.1 Orthostatic hypotension; I49.8 Other specified cardiac arrhythmias; G47.01 Insomnia due to medical condition; K52.9 Noninfective gastroenteritis and colitis, unspecified; R79.89 Other specified abnormal findings of blood chemistry; G45.9 Transient cerebral ischemic attack, unspecified; Z78.9 Other specified health status; B35.1 Tinea unguium; Z79.890 Hormone replacement therapy; E88.810 Metabolic syndrome; G93.31 Postviral fatigue syndrome
CPT/HCPCS: 36415; 80053; 80061; 82043; 82306; 82570; 82607; 82670; 83036; 83540; 83550; 84144; 84402; 84403; 84439; 84443; 84481; 85025; 87389

== ENCOUNTER → 2024-12-15 07:57 | Outpatient (CLI) | payer OTHER, SELFPAY ==
[2024-12-15 09:01] LABS: Add Manual Diff / Slide Review NO; Basophils Absolute Auto 0 /uL (0-100); Basophils Percent Auto 0.1 % (0-2); Eosinophils Absolute Auto 500 /uL (0-450); Eosinophils Percent Auto 4.9 % (2-4); Hematocrit 43.2 % (36-46); Hemoglobin 14.4 g/dL (12.0-16.0); Lymphocytes Absolute Auto 4700 /uL (1100-4500); Lymphocytes Percent Auto 49.4 % (25-40); Mean Corpuscular HGB Conc 33.3 % (30-36); Mean Corpuscular Hemoglobin 29.5 PG (26-34); Mean Corpuscular Volume 88.5 fL (80-100); Monocytes Absolute Auto 600 /uL (0-900); Monocytes Percent Auto 6.1 % (3-14); Neutrophils Absolute Auto 3800 /uL (1500-7000); Neutrophils Percent Auto 39.5 % (50-75); Platelet Count 405 X10^3/uL (150-400); Red Blood Cell Count 4.88 X10^6/uL (4.0-5.2); Red Cell Distribution Width 13.6 % (11.6-14.8); White Blood Cell Count 9.5 X10^3/uL (4.5-11.0)
[2024-12-15 09:44] LABS: Alanine Aminotransferase 19 IU/L (<35); Albumin 4.2 g/dL (3.5-5.0); Albumin Globulin Ratio 1.6 (1.0-2.8); Alkaline Phosphatase 41 U/L (38-126); Aspartate Aminotransferase 25 IU/L (14-36); BUN Creatinine Ratio 30.9 (6-22); Bilirubin Total 0.4 mg/dL (0.2-1.3); Blood Urea Nitrogen 29 mg/dL (7-17); Calcium 9.2 mg/dL (8.4-10.2); Carbon Dioxide 27 mmol/L (22-32); Chloride 100 mmol/L (98-107); Cholesterol 313 mg/dL (140-199); Estimated Glomerular Filt Rate > 60 mL/min (>60); Globulin 2.6 g/dL (1.7-4.1); Glucose 96 mg/dL (70-99); HDL Cholesterol 62 mg/dL (40-60); HEMOLYSIS < 15 (0-50); LDL Cholesterol Calculated 194 mg/dL (<100); Potassium 4.2 mmol/L (3.4-5.1); Sodium 135 mmol/L (137-145); Total Protein 6.8 g/dL (6.3-8.2); Triglycerides 283 mg/dL (35-150)
[2024-12-15 09:58] LABS: TSH w/ Reflex to FT4 2.36 uIU/mL (0.47-4.68)
== END ==
PROVIDERS: PCP Nurse Practitioner Family; Referring Provider Nurse Practitioner Family; Visit Provider Nurse Practitioner Family
DX: E66.3 Overweight (principal); R79.89 Other specified abnormal findings of blood chemistry; M79.7 Fibromyalgia; F32.9 Major depressive disorder, single episode, unspecified; R53.82 Chronic fatigue, unspecified; E78.5 Hyperlipidemia, unspecified; B35.1 Tinea unguium; G47.01 Insomnia due to medical condition
CPT/HCPCS: 36415; 80053; 80061; 84443; 85025

== ENCOUNTER → 2025-01-17 10:59 | Outpatient (CLI) | payer OTHER, SELFPAY ==
[2025-01-18 19:07] LABS: Fecal Immunochemical Test Negative (Negative)
== END ==
PROVIDERS: PCP Nurse Practitioner Family; Referring Provider Nurse Practitioner Family; Visit Provider Nurse Practitioner Family
DX: Z12.11 Encounter for screening for malignant neoplasm of colon (principal)
CPT/HCPCS: 82274

== ENCOUNTER → 2025-01-27 15:23 | Outpatient (CLI) | payer OTHER, SELFPAY ==
--- NOTE | 2025-01-27 15:25 | DI.US.S_ITS ---
PROCEDURE: US PELVIC COMPLETE INDICATIONS: POST MENOPAUSAL BLEEDING TECHNIQUE: Real-time scanning was performed of the pelvic organs, with image documentation. Additional endovaginal scanning was necessary due to incomplete visualization of the adnexal and endometrial structures by transabdominal scanning. COMPARISON: None. FINDINGS: Uterus: Uterus is anteverted and normal in size at 6.4 x 4.3 x 3.8 cm. The myometrium is heterogeneous. The endometrium measures 7 mm combined thickness. Left posterior intramural fibroid measuring 1.2 x 1 x 0.8 cm. Questionable endometrial polyp measuring 0.9 x 0.8 x 0.6 cm. Ovaries: The right ovary measures 2 x 1.3 x 1.3 cm, with a calculated ovarian volume of 2 cc. The left ovary not seen. No significant ovarian cysts. Other: No pathologic free abdominal or pelvic fluid. IMPRESSION: 1. Endometrium measures 7 mm. Thickened in this patient with postmenopausal bleeding. Recommend endometrial biopsy if not yet performed. 2. Questionable endometrial polyp measuring 0.9 cm. 3. Left intramural fibroid measuring 1.2 cm. 4. No significant ovarian cyst. The left ovary is not seen. We strive to produce accurate, complete, and clear reports of imaging services. To assist us in improving patient care, this report was composed using standard report templates and voice recognition software. Therefore, it may contain abnormal punctuation, insertions and/or omissions. Occasional wrong-word or sound-alike substitutions may occur. Though we review the report and make efforts to correct it, we do recommend that the report be read carefully in proper context to recognize any text inaccuracies. Dictated by: Uriel Montano M.D. on 01/27/2025 at 20:39 Approved by: Uriel Montano M.D. on 01/27/2025 at 20:45
== END ==
PROVIDERS: PCP Nurse Practitioner Family; Referring Provider Nurse Practitioner Family; Visit Provider Nurse Practitioner Family
DX: N95.0 Postmenopausal bleeding (principal); D25.1 Intramural leiomyoma of uterus; R93.89 Abnormal findings on diagnostic imaging of other specified body structures
CPT/HCPCS: 76830; 76856

== ENCOUNTER 2025-04-10 10:44 | Observation (INO) | payer OTHER, SELFPAY ==
[2025-03-25 03:28] VITALS: BMI 25.7
[2025-04-10] VITALS (14 sets, daily range): BP systolic 91–119; BP diastolic 51–67; PULSE 65–80; RESP 12–20; TEMP 36–36.9; O2SAT 95–100; BMI 25.0
--- NOTE | 2025-04-10 11:02 | DI.RAD.S_ITS ---
PROCEDURE: XR CHEST 1V INDICATIONS: Chest Pain TECHNIQUE: One view of the chest was acquired. COMPARISON: [facility], CR, XR CHEST 1V, 03/24/2025, 18:44. [facility], CR, XR CHEST 1V, 09/04/2021, 11:05. FINDINGS: Surgical changes and devices: None. Lungs and pleura: Lungs are clear. No pleural effusions or pneumothorax. Mediastinum: Mediastinal contours appear normal. Heart size is normal. Bones and chest wall: No suspicious bony lesions. Overlying soft tissues appear unremarkable. IMPRESSION: No acute cardiopulmonary abnormality is seen. Dictated by: Marie Spears M.D. on 04/10/2025 at 10:50 Approved by: Marie Spears M.D. on 04/10/2025 at 10:51
--- NOTE | 2025-04-10 11:02 | EKG_ITS ---
[address] [address] Test Date: 2025-04-10 Pat Name: Leticia Boateng Department: Room: Gender: Female [employer]cher [employer]: : 1960 Requested By: Order Number: [id number] Reading MD: Kevin Carbajal Measurements Intervals [place] Rate: 71 P: 50 [place]: 124 QRS: 24 QRSD: 72 T: 53 QT: 416 QTc: 452 Interpretive Statements Normal sinus rhythm Electronically Signed On 04-10-2025 14:44:39 PDT by Kevin Carbajal
--- NOTE | 2025-04-10 11:09 | ED.CHESTPAIN ---
HPI - Chest Pain General Chief Complaint: Chest Pain Stated Complaint: Had EMT visit; chest pain, SOB, burning Time Seen by Provider: 04/10/25 11:09 Source: patient Mode of arrival: Ambulatory Limitations: no limitations History of Present Illness HPI narrative: 64-year-old female with a past medical history of fibromyalgia, pots, hyperlipidemia, presents to the ED from home for evaluation of chest pain/burning sensation. Patient states that she did call 911 was evaluated by medics had a normal EKG was told to be evaluated but declined transport by them and ambulated by private vehicle here. Patient states that she did take full-dose aspirin by medics prior to arrival. She denies any other symptoms such as headache visual disturbance shortness of breath fever chills nausea vomiting abdominal pain or any other GI/ symptoms at this time. Patient follows with of cardiology. Related Data Home Medications ?Medication ?Instructions ?Recorded ?Confirmed L carnitine 1,000 mg PO .QD 07/27/19 03/25/25 vitamin E (dl, acetate) 180 mg 400 unit PO DAILY 07/27/19 03/25/25 (400 unit) capsule melatonin 10 mg capsule 10 mg PO BEDTIME PRN sleep 09/29/19 03/25/25 resveratrol-quercetin 100 mg-100 tab PO 07/06/21 01/06/25 mg tablet Vitamin D3 [id number] See Rx Instructions .Route .COMPLEX 06/27/22 03/25/25 evolocumab 140 mg/mL subcutaneous 140 mg SUBCUT Q2W 01/06/25 03/25/25 pen injector propranolol 60 mg tablet 60 mg PO ONCE 01/06/25 03/25/25 aspirin 81 mg tablet,delayed 81 mg PO DAILY 02/28/25 03/25/25 release (Adult Aspirin Regimen) cetirizine 10 mg capsule (All Day 10 mg PO DAILY PRN allergy symptoms 03/25/25 03/25/25 Allergy (cetirizine)) Previous Rx's ?Medication ?Instructions ?Recorded Disabled Parking Permit See Rx Instructions .Route 10/11/20 .COMPLEX #1 unit omega-3 acid ethyl esters 1 gram 1 cap PO BID #180 caps 08/21/22 capsule (Lovaza) estradiol 2 mg tablet 2 mg PO DAILY #90 tabs 03/11/24 metformin 500 mg tablet See Rx Instructions .Route 03/11/24 .COMPLEX #180 tabs progesterone micronized 200 mg 200 mg PO BEDTIME #90 caps 03/16/24 capsule semaglutide (weight loss) 0.25 0.25 mg (0.5 mL) SUBCUT QWEEK #6 mL 06/09/24 mg/0.5 mL subcutaneous pen injector naltrexone 50 mg tablet See Rx Instructions .Route 06/30/24 .COMPLEX #90 tabs guanfacine 4 mg tablet,extended 4 mg PO DAILY #90 tabs 07/22/24 release 24 hr terbinafine HCl 250 mg tablet 250 mg PO DAILY #90 tabs 11/18/24 liothyronine 5 mcg tablet 5 mcg PO DAILY #90 tabs 12/15/24 methylphenidate HCl 10 mg tablet 10 mg PO DAILY #30 tabs 12/30/24 methylphenidate HCl 20 mg 20 mg PO QAM #30 tabs 12/30/24 tablet,extended release doxepin 10 mg capsule 10 mg PO BEDTIME #90 caps 03/07/25 fluoxetine 40 mg capsule 40 mg PO QAM #90 caps 03/14/25 baclofen 5 mg tablet 5 mg PO 3XD PRN for muscle spasm 03/23/25 #90 tabs fluticasone propionate 50 2 spray intranasal DAILY #16 grams 03/24/25 mcg/actuation nasal spray,suspension (Allergy Relief (fluticasone)) levothyroxine 25 mcg tablet 25 mcg PO DAILY #90 tabs 03/24/25 prasugrel HCl 10 mg tablet 10 mg PO DAILY #30 tabs 03/26/25 Allergies Allergy/AdvReac Type Severity Reaction Status Date / Time aspirin Allergy gastric Verified 04/10/25 10:54 ulcers gluten Allergy Verified 04/10/25 10:54 NSAIDS (Non-Steroidal Allergy gastric Verified 04/10/25 10:54 Anti-Inflamma ulcers ezetimibe AdvReac Intermediate Muscle Pain Verified 04/10/25 10:54 inositol niacinate (From AdvReac Intermediate flushing Verified 04/10/25 10:54 Niacin No Flush) niacin (From Niacin No Flush) AdvReac Intermediate flushing Verified 04/10/25 10:54 Review of Systems Review of Systems Narrative: General: Denies fever, chills, weight loss HEENT: Denies headache, eye drainage, eye irritation, head trauma, sore throat, voice change Cardiovascular: Positive chest pain, denies palpitations, tachycardia Respiratory: Denies any shortness of breath, cough, wheeze, stridor GI/: Denies any abdominal pain, nausea, vomiting, diarrhea, bright red blood per rectum, melanotic stools, urinary frequency, urinary retention, dysuria, hematuria MSK: Denies any joint pain, muscle pains, swelling Skin: Denies any rashes, lesions, discoloration Neuro: Denies any headache, lightheadedness, dizziness, fainting, weakness Psych: Denies SI/HI Patient History Medical History Postmenopausal bleeding Overweight (BMI 25.0-29.9) ADD (attention deficit disorder) Postmenopausal HRT (hormone replacement therapy) Onychomycosis of toenail Statin intolerance Elevated triglycerides with high cholesterol TIA (transient ischemic attack) Low TSH level Chronic diarrhea Insomnia Myalgic encephalomyelitis POTS (postural orthostatic tachycardia syndrome) Dysautonomia orthostatic hypotension syndrome Fibromyalgia Intermittent pain Depression CFS (chronic fatigue syndrome) (~2012) Restless leg syndrome Benign familial tremor Chicken pox (~1969) PCOS (polycystic ovarian syndrome) Gastric ulcer Insulin resistance Hyperlipidemia (~2016) Surgical History Anesthesia History of section (~1987) History of surgery (~2014) Family History Father Hypertension Mother Diabetes mellitus History of heart disease Hypertension Mental health problem Sister History of heart disease Mental health problem Hypertension Sister Mental health problem Melanoma Grandfather History of heart disease Grandmother Lung disease Grandfather History of heart disease Grandmother Pneumonia Social History household members: spouse Smoking Status: Never smoker alcohol intake: never Smoking Status: Never smoker alcohol intake frequency: holidays/special occasions only Exam Narrative Exam Narrative: General: Cooperative, well-developed, not in acute distress HEENT: Normocephalic, atraumatic, PERRLA, normal sclera, eyelids normal Neck: Active full range of motion, atraumatic Chest: Normal to inspection, negative crepitus, no overlying erythema ecchymosis Respiratory: Normal respiratory effort, not in acute respiratory distress, clear to auscultation bilaterally negative cough, wheeze, tachypnea, rhonchi, rales Cardiology: Regular rate rhythm negative gallop, murmur, rubs GI/: No tenderness to palpation, soft, non rigid, normal to inspection, exam deferred MSK: Full active range of motion in all 4 extremities, atraumatic, no tenderness to palpation of any bony prominences Skin: No rashes or lesions noted Neuro: Alert awake oriented x3, moves all 4 extremities spontaneously, cranial nerves intact, able to answer all questions appropriately follows commands appropriately Psych: Cooperative, negative suicidal or homicidal ideations Initial Vital Signs Initial Vital Signs: Vital Signs Pulse Rate 80 04/10/25 10:50 Blood Pressure 112/67 04/10/25 10:50 Pulse Oximetry 96 04/10/25 10:50 Course Orders Ordered: ED Orders 04/10/25 11:02 XR chest 1V Stat EKG-12 Lead Stat 04/10/25 11:23 Complete Blood Count AUTO DIFF Stat Comprehensive Metabolic Panel Stat Lipase Stat Magnesium Stat NT-proBNP (BNP-Adult 18+) Stat PTT Partial Thromboplastin John Stat Prothrombin Time INR Stat Troponin & CK Cardiac Panel Stat 04/10/25 13:33 Trop I [Troponin I] Stat 04/10/25 14:11 EKG-12 Lead Stat Discontinued Medications Aspirin (Aspirin 81 Mg Chew Tab) 324 mg PO NOW ONE Stop: 04/10/25 11:03 Last Admin: 04/10/25 11:50 Dose: Not Given Documented By: [facility] Famotidine (Famotidine 20 Mg/2 Ml Vial) 20 mg IV NOW ONE Stop: 04/10/25 11:17 Last Admin: 04/10/25 11:52 Dose: 20 mg Documented By: [facility] Sodium Chloride (Normal Saline 0.9%) 1,000 mls @ 1,000 mls/hr IV BOLUS ONE Stop: 04/10/25 12:49 Last Infusion: 04/10/25 12:50 Dose: Infused Documented By: Admin: 04/10/25 11:54 Dose: 1,000 mls/hr Documented By: [facility] Vital Signs Vital signs: Vital Signs - 8 hr 04/10/25 10:50 04/10/25 10:50 04/10/25 10:53 Temperature 98.4 F Pulse Rate 80 74 Respiratory Rate 18 Blood Pressure 112/67 112/60 Pulse Oximetry 96 100 Oxygen Delivery Method Room Air 04/10/25 11:00 04/10/25 11:30 04/10/25 11:40 Temperature Pulse Rate 73 70 Respiratory Rate 13 12 Blood Pressure 110/65 91/51 L Pulse Oximetry 99 98 Oxygen Delivery Method 04/10/25 11:40 04/10/25 12:00 04/10/25 12:00 Temperature Pulse Rate 69 65 Respiratory Rate 13 13 Blood Pressure 98/56 L Pulse Oximetry 96 97 Oxygen Delivery Method 04/10/25 12:30 04/10/25 12:30 Temperature Pulse Rate 71 Respiratory Rate 13 Blood Pressure 108/57 L Pulse Oximetry 97 Oxygen Delivery Method MDM - Chest Pain Lab Data 04/10/25 11:23 04/10/25 11:23 Labs: Lab Results 04/10/25 04/10/25 Range/Units 11:23 13:33 WBC 9.2 (4.5-11.0) X10^3/uL RBC 4.78 (4.0-5.2) X10^6/uL Hgb 14.5 (12.0-16.0) g/dL Hct 43.1 (36-46) % MCV 90.1 (80-100) fL MCH 30.2 (26-34) PG MCHC 33.5 (30-36) % RDW 13.1 (11.6-14.8) % Plt Count 383 (150-400) X10^3/uL Neut % (Auto) 54.7 (50-75) % Lymph % (Auto) 34.8 (25-40) % [place] % (Auto) 5.9 (3-14) % Eos % (Auto) 4.2 H (2-4) % Baso % (Auto) 0.4 (0-2) % Neut # (Auto) 5000 (5225-5274) /uL Lymph # (Auto) 3200 (2897-3936) /uL [place] # (Auto) 500 (0-900) /uL Eos # (Auto) 400 (0-450) /uL Baso # (Auto) 0 (0-100) /uL PT 10.3 (9.4-12.5) SECONDS INR 0.9 (0.9-1.3) APTT 29 (25.1-36.5) SECONDS Sodium 135 L (137-145) mmol/L Potassium 5.3 H (3.4-5.1) mmol/L Chloride 101 (98-107) mmol/L Carbon Dioxide 26 (22-32) mmol/L BUN 28 H (7-17) mg/dL Creatinine 0.77 (0.52-1.04) mg/dL Estimated GFR > 60 (>60) mL/min BUN/Creatinine Ratio 36.4 H (6-22) Glucose 98 (70-99) mg/dL Calcium 8.8 (8.4-10.2) mg/dL Magnesium 2.0 (1.6-2.3) mg/dL Total Bilirubin 1.0 (0.2-1.3) mg/dL AST 39 H (14-36) IU/L ALT 20 (<35) IU/L Alkaline Phosphatase 30 L (38-126) U/L Total Creatine Kinase 55 (30-135) U/L Troponin I 0.027 0.066 H (0.01-0.034) ng/mL NT-Pro-B Natriuret Pep 25 (<125) pg/mL Total Protein 8.0 (6.3-8.2) g/dL Albumin 4.7 (3.5-5.0) g/dL Globulin 3.3 (1.7-4.1) g/dL Albumin/Globulin Ratio 1.4 (1.0-2.8) Lipase 69 (23-300) U/L ECG Data Interpretation: EKG interpreted by ED physician sinus 71 beats per minute QTC 452, normal axis QRS MN interval within normal limits no STEMI Repeat EKG interpreted by ED physician sinus 70 beats per minute, QTC 453 QRS MN interval within normal limits no STEMI MDM Narrative Medical decision making narrative: Patient is a 64-year-old female with a past medical history of POTS, hyperlipidemia, fibromyalgia, coming into the ED from home for evaluation of chest pain/burning. States this is similar to when she was seen here on 03/24/2025. Patient follows with Dr. Raymond, states just saw her last week. Has a stress test scheduled. States that the symptoms started earlier this morning. States it is not having any symptoms at this time. Patient denies any other symptoms at this time. Patient does have a heart score of 4. Patient's lab work not consistent with a leukocytosis, Chem panel with only a slightly elevated potassium of 5.3, patient was given 1 L normal saline no EKG changes, creatinine normal, patient's initial troponin 0.027, repeat indeterminate 0.066. Repeat EKG was performed no STEMI 1418: Discussed case with the regulatory affairs associate Dr. Kiran, he agrees of having patient admitted for chest pain, patient not requiring heparinization at this time given troponin still indeterminate at this time, however he does recommend trending troponin if starting to elevate would recommend heparinization, patient is still without any chest pain or shortness of breath.. He states that patient should have stress test done tomorrow, 1 day protocol. Patient understands and agrees with this plan The patient's management plan was discussed Dr. Carbajal, who agrees to admit the patient to their service and assumes care of this patient at this time. Full admission orders will be placed by the primary team. Discharge Plan Departure Patient Disposition: Admitted as Observation Clinical Impression: Chest pain
[2025-04-10 11:31] LABS: Add Manual Diff / Slide Review NO; Hematocrit 43.1 % (36-46); Hemoglobin 14.5 g/dL (12.0-16.0); Lymphocytes Absolute Auto 3200 /uL (1100-4500); Mean Corpuscular HGB Conc 33.5 % (30-36); Mean Corpuscular Hemoglobin 30.2 PG (26-34); Mean Corpuscular Volume 90.1 fL (80-100); Platelet Count 383 X10^3/uL (150-400)
[2025-04-10 11:38] LABS: INR 0.9 (0.9-1.3); Prothrombin Time 10.3 SECONDS (9.4-12.5)
[2025-04-10 11:41] LABS: PTT Partial Thromboplastin Tim 29 SECONDS (25.1-36.5)
[2025-04-10 11:43] LABS: Alanine Aminotransferase 20 IU/L (<35); Albumin 4.7 g/dL (3.5-5.0); Albumin Globulin Ratio 1.4 (1.0-2.8); Alkaline Phosphatase 30 U/L (38-126); Blood Urea Nitrogen 28 mg/dL (7-17); Calcium 8.8 mg/dL (8.4-10.2); Carbon Dioxide 26 mmol/L (22-32); Chloride 101 mmol/L (98-107); Creatine Kinase 55 U/L (30-135); Estimated Glomerular Filt Rate > 60 mL/min (>60); Globulin 3.3 g/dL (1.7-4.1); Glucose 98 mg/dL (70-99); HEMOLYSIS 132 (0-50); Lipase 69 U/L (23-300); Magnesium 2.0 mg/dL (1.6-2.3); Potassium 5.3 mmol/L (3.4-5.1); Sodium 135 mmol/L (137-145); Total Protein 8.0 g/dL (6.3-8.2)
[2025-04-10] MEDS: FAMOTIDINE 20 MG/2 ML VIAL IV (11:52)
[2025-04-10 11:54] LABS: NT-proBNP (BNP-Adult 18+) 25 pg/mL (<125); Troponin I 0.027 ng/mL (0.01-0.034)
[2025-04-10] MEDS: SODIUM CHLORIDE 0.9% 1,000 ML 1000 ML IV (11:54)
[2025-04-10 14:01] LABS: Troponin I 0.066 ng/mL (0.01-0.034)
--- NOTE | 2025-04-10 14:11 | EKG_ITS ---
[address] [address] Test Date: 2025-04-10 Pat Name: Leticia Boateng Department: [facility] Room: Gender: Female Services Coordinator: : 1960 Requested By: Order Number: [id number] Reading MD: Kevin Carbajal Measurements Intervals [place] Rate: 70 P: 43 [place]: 124 QRS: 9 QRSD: 74 T: 37 QT: 420 QTc: 453 Interpretive Statements Normal sinus rhythm Electronically Signed On 04-10-2025 14:44:27 PDT by Kevin Carbajal
--- NOTE | 2025-04-10 14:47 | PM.HP.1 ---
History of Present Illness History of Present Illness Date Patient Seen: 04/10/25 Time Patient Seen: 14:47 Chief complaint: Had EMT visit; chest pain, SOB, burning Narrative: This is a 64-year-old female with a history of TIA, hyperlipidemia, oab-ngnabkg-gxgwksany diabetes, Myalgic encephalomyelitis (CFS), hormonal replacement therapy with estrogen and progesterone, POTS and hypothyroidism who presents with atypical chest pain at rest. She was just admitted 2 weeks ago with a quite similar presentation, followed up with her configurator, Dr. Raymond and was pending an outpatient resting stress test/NM scan. She has been on prasugrel since that discharge. Today she slept well overnight and when she got up to use the bathroom this morning she began experiencing an epigastric/substernal burning sensation. This became more and more intense, finally becoming very sharp to the point of causing her to cry. The total duration was only 15 minutes. She was extremely short of breath. Family called 911 and by the time paramedics had finished their evaluation of her the symptoms had resolved. Her initial troponin is 0.027 followed by 0.066. (Her troponin last time peaked at 0.089.) Her EKGs have been normal. Her echocardiogram was normal last month. Lipid panel with total Chol of 153 and LDL of 56 and A1c 5.4. [facility] Medical History Postmenopausal bleeding Overweight (BMI 25.0-29.9) ADD (attention deficit disorder) Postmenopausal HRT (hormone replacement therapy) Onychomycosis of toenail Statin intolerance Elevated triglycerides with high cholesterol TIA (transient ischemic attack) Low TSH level Chronic diarrhea Insomnia Myalgic encephalomyelitis POTS (postural orthostatic tachycardia syndrome) Dysautonomia orthostatic hypotension syndrome Fibromyalgia Intermittent pain Depression CFS (chronic fatigue syndrome) (~2012) Restless leg syndrome Benign familial tremor Chicken pox (~1969) PCOS (polycystic ovarian syndrome) Gastric ulcer Insulin resistance Hyperlipidemia (~2016) Surgical History Anesthesia History of section (~1987) History of surgery (~2014) Family History Father Hypertension Mother Diabetes mellitus History of heart disease Hypertension Mental health problem Sister History of heart disease Mental health problem Hypertension Sister Mental health problem Melanoma Grandfather History of heart disease Grandmother Lung disease Grandfather History of heart disease Grandmother Pneumonia Social History household members: spouse Smoking Status: Never smoker alcohol intake: never Meds Home Medications and Allergies Home Medications ?Medication ?Instructions ?Recorded ?Confirmed ?Type L carnitine 1,000 mg PO .QD 07/27/19 03/25/25 History vitamin E (dl, acetate) 180 mg 400 unit PO DAILY 07/27/19 03/25/25 History (400 unit) capsule melatonin 10 mg capsule 10 mg PO BEDTIME PRN sleep 09/29/19 03/25/25 History Disabled Parking Permit See Rx Instructions .Route 10/11/20 01/06/25 Rx .COMPLEX #1 unit resveratrol-quercetin 100 mg-100 tab PO 07/06/21 01/06/25 History mg tablet Vitamin D3 [id number] See Rx Instructions .Route .COMPLEX 06/27/22 03/25/25 History omega-3 acid ethyl esters 1 gram 1 cap PO BID #180 caps 08/21/22 03/25/25 Rx capsule (Lovaza) estradiol 2 mg tablet 2 mg PO DAILY #90 tabs 03/11/24 03/25/25 Rx metformin 500 mg tablet See Rx Instructions .Route 03/11/24 03/25/25 Rx .COMPLEX #180 tabs progesterone micronized 200 mg 200 mg PO BEDTIME #90 caps 03/16/24 03/25/25 Rx capsule semaglutide (weight loss) 0.25 0.25 mg (0.5 mL) SUBCUT QWEEK #6 mL 06/09/24 03/25/25 Rx mg/0.5 mL subcutaneous pen injector naltrexone 50 mg tablet See Rx Instructions .Route 06/30/24 03/25/25 Rx .COMPLEX #90 tabs guanfacine 4 mg tablet,extended 4 mg PO DAILY #90 tabs 07/22/24 03/25/25 Rx release 24 hr terbinafine HCl 250 mg tablet 250 mg PO DAILY #90 tabs 11/18/24 03/25/25 Rx liothyronine 5 mcg tablet 5 mcg PO DAILY #90 tabs 12/15/24 03/25/25 Rx methylphenidate HCl 10 mg tablet 10 mg PO DAILY #30 tabs 12/30/24 03/25/25 Rx methylphenidate HCl 20 mg 20 mg PO QAM #30 tabs 12/30/24 03/25/25 Rx tablet,extended release evolocumab 140 mg/mL subcutaneous 140 mg SUBCUT Q2W 01/06/25 03/25/25 History pen injector propranolol 60 mg tablet 60 mg PO ONCE 01/06/25 03/25/25 History aspirin 81 mg tablet,delayed 81 mg PO DAILY 02/28/25 03/25/25 History release (Adult Aspirin Regimen) doxepin 10 mg capsule 10 mg PO BEDTIME #90 caps 03/07/25 03/25/25 Rx fluoxetine 40 mg capsule 40 mg PO QAM #90 caps 03/14/25 03/25/25 Rx baclofen 5 mg tablet 5 mg PO 3XD PRN for muscle spasm 03/23/25 03/25/25 Rx #90 tabs fluticasone propionate 50 2 spray intranasal DAILY #16 grams 03/24/25 03/25/25 Rx mcg/actuation nasal spray,suspension (Allergy Relief (fluticasone)) levothyroxine 25 mcg tablet 25 mcg PO DAILY #90 tabs 03/24/25 03/25/25 Rx cetirizine 10 mg capsule (All Day 10 mg PO DAILY PRN allergy symptoms 03/25/25 03/25/25 History Allergy (cetirizine)) prasugrel HCl 10 mg tablet 10 mg PO DAILY #30 tabs 03/26/25 Rx Allergies Allergy/AdvReac Type Severity Reaction Status Date / Time aspirin Allergy gastric Verified 04/10/25 10:54 ulcers gluten Allergy Verified 04/10/25 10:54 NSAIDS (Non-Steroidal Allergy gastric Verified 04/10/25 10:54 Anti-Inflamma ulcers ezetimibe AdvReac Intermediate Muscle Pain Verified 04/10/25 10:54 inositol niacinate (From AdvReac Intermediate flushing Verified 04/10/25 10:54 Niacin No Flush) niacin (From Niacin No Flush) AdvReac Intermediate flushing Verified 04/10/25 10:54 Review of Systems Review of Systems Narrative: Positive for chronic fatigue, chest pain and shortness of breath. Negative for fevers, chills, sweats, coughing, abdominal pain, nausea, vomiting, diarrhea, bleeding, dysuria, rashes, joint pain, sore throat and headache. Exam Vital Signs (past 8 hours): - 04/10/25 10:50 04/10/25 10:50 04/10/25 10:53 Temperature 98.4 F Pulse Rate 80 74 Respiratory Rate 18 Blood Pressure 112/67 112/60 Pulse Oximetry 96 100 Oxygen Delivery Method Room Air 04/10/25 11:00 04/10/25 11:30 04/10/25 11:40 Temperature Pulse Rate 73 70 Respiratory Rate 13 12 Blood Pressure 110/65 91/51 L Pulse Oximetry 99 98 Oxygen Delivery Method 04/10/25 11:40 04/10/25 12:00 04/10/25 12:00 Temperature Pulse Rate 69 65 Respiratory Rate 13 13 Blood Pressure 98/56 L Pulse Oximetry 96 97 Oxygen Delivery Method 04/10/25 12:30 04/10/25 12:30 Temperature Pulse Rate 71 Respiratory Rate 13 Blood Pressure 108/57 L Pulse Oximetry 97 Oxygen Delivery Method Oxygen Delivery Method Room Air Narrative Exam Narrative: Alert and oriented x3. No apparent distress. Sclerae are pink and nonicteric. Pupils are equally round and reactive to light and accommodation. Extraocular muscles are intact. No lymph nodes are felt head, neck, supraclavicular area. There is no thyromegaly. JVD is less than 6 cm. No carotid bruits are heard. Heart is regular rate and rhythm without murmur. There is no chest wall tenderness. Lungs are clear to auscultation bilaterally. Abdomen is soft, bowel sounds positive, nontender, no organomegaly. Extremities have no ankle edema. Skin has no rash or jaundice. Neurologic exam is notable for 4/5 symmetric strength in all extremities. Cranial nerves 2-12 test intact. There is no tremor. Deep tendon reflexes are normal. Objective Labs 04/10/25 11:23 04/10/25 11:23 Labs: Laboratory Results - last 24 hr 04/10/25 04/10/25 11:23 13:33 WBC 9.2 RBC 4.78 Hgb 14.5 Hct 43.1 MCV 90.1 MCH 30.2 MCHC 33.5 RDW 13.1 Plt Count 383 Neut % (Auto) 54.7 Lymph % (Auto) 34.8 Day % (Auto) 5.9 Eos % (Auto) 4.2 H Baso % (Auto) 0.4 Neut # (Auto) 5000 Lymph # (Auto) 3200 Day # (Auto) 500 Eos # (Auto) 400 Baso # (Auto) 0 PT 10.3 INR 0.9 APTT 29 Sodium 135 L Potassium 5.3 H Chloride 101 Carbon Dioxide 26 BUN 28 H Creatinine 0.77 Estimated GFR > 60 BUN/Creatinine Ratio 36.4 H Glucose 98 Calcium 8.8 Magnesium 2.0 Total Bilirubin 1.0 AST 39 H ALT 20 Alkaline Phosphatase 30 L Total Creatine Kinase 55 Troponin I 0.027 0.066 H NT-Pro-B Natriuret Pep 25 Total Protein 8.0 Albumin 4.7 Globulin 3.3 Albumin/Globulin Ratio 1.4 Lipase 69 Assessment & Plan Assessment & Plan narrative: This is a 64-year-old female with a history of TIA, hyperlipidemia, kll-iekjkjj-mnhtzsmrm diabetes, Myalgic encephalomyelitis (CFS), hormonal replacement therapy with estrogen and progesterone, POTS and hypothyroidism who presents with atypical chest pain at rest. She was just admitted 2 weeks ago with a quite similar presentation, followed up with her configurator, Dr. Raymond and was pending an outpatient resting stress test/NM scan. She points out that her Myalgic encephalomyelitis (CFS) symptoms could be easily triggered by inducing her HR to go above 85 (Her average HR + 15). This makes plans for straightforward cardiac stress or resting scans challenging. The chest CT last month showed no pulmonary embolus, 1. Normal caliber thoracic aorta without dissection. There is a degree of ASCVD. There is a mild stenosis of the proximal left subclavian artery secondary to soft plaque. 3. 5 mm mildly spiculated pulmonary nodule, left lower lobe. Recommend follow-up CT chest in 12 months for the 5 mm left lower lobe Atypical chest pain with rising troponin, present on admission. Active. -trend troponin, proceed with resting nuclear medicine cardiac scan per recommendation of Dr. Kiran, who was contacted in the ED. -continue prasugrel and aspirin. Hypertension. Propanolol. Endometrial Abnormality (PCOS?). Continue Metformin. She does not have Diabetes (A1C 5.4) Hyperlipidemia. Chol 153 and LDL 56. She has been on Repatha with cardiology management. Hypothyroidism. Resumed home Synthroid. Hormone replacement therapy. Progesterone. Myalgic encephalomyelitis (CFS). Naltrexone, Propanolol, Ritalin, Levothyroxine, Guanfacine, Prozac and Baclofen SCDs for DVT prevention Her is her backup decision maker. Time-Based Coding :: [TOTAL MINUTES] spent with patient and on the chart (including review of chart, obtaining history, exam, reviewing outside data, placing orders, documenting exam and treatment plan, and counseling patient) on [DATE].
[2025-04-10 16:03] LABS: Troponin I 0.075 ng/mL (0.01-0.034)
[2025-04-10] MEDS: PROGESTERONE, MICRONIZED 100 MG CAPSULE 200 MG PO (20:19)
[2025-04-10 21:42] LABS: Troponin I 0.059 ng/mL (0.01-0.034)
[2025-04-11 03:00] VITALS: BP 122/64; PULSE 70; RESP 18; TEMP 36.1; O2SAT 95
[2025-04-11 03:42] LABS: Troponin I 0.035 ng/mL (0.01-0.034)
[2025-04-11 07:00] VITALS: BP 113/60; PULSE 73; RESP 18; TEMP 36; O2SAT 97
--- NOTE | 2025-04-11 08:04 | P.DS_ITS ---
History of Present Illness History of Present Illness Chief complaint: Had EMT visit; chest pain, SOB, burning Narrative: This is a 64-year-old female with a history of TIA, hyperlipidemia, trk-lgmzzzc-neptkxrdc diabetes, Myalgic encephalomyelitis (CFS), hormonal replacement therapy with estrogen and progesterone, POTS and hypothyroidism who presents with atypical chest pain at rest. She was just admitted 2 weeks ago with a quite similar presentation, followed up with her windchill administrator, Dr. Raymond and was pending an outpatient resting stress test/NM scan. She has been on prasugrel since that discharge. Today she slept well overnight and when she got up to use the bathroom this morning she began experiencing an epigastric/substernal burning sensation. This became more and more intense, finally becoming very sharp to the point of causing her to cry. The total duration was only 15 minutes. She was extremely short of breath. Family called 911 and by the time paramedics had finished their evaluation of her the symptoms had resolved. Her initial troponin is 0.027 followed by 0.066. (Her troponin last time peaked at 0.089.) Her EKGs have been normal. Her echocardiogram was normal last month. Lipid panel with total Chol of 153 and LDL of 56 and A1c 5.4. Discharge Providers Provider Date of admission: 04/10/25 14:46 Discharge Date: 04/11/25 Primary care physician: Sandra Hussein [facility] [place] Discharge provider: Syl Carbajal MD Summary Hospital Course Hospital Course: This is a 64-year-old female with a history of TIA, hyperlipidemia, ihf-vmevwig-ghfatpjke diabetes, Myalgic encephalomyelitis (CFS), hormonal replacement therapy with estrogen and progesterone, POTS and hypothyroidism who presents with atypical chest pain at rest. She was just admitted 2 weeks ago with a quite similar presentation, followed up with her windchill administrator, Dr. Raymond and was pending an outpatient resting stress test/NM scan. She points out that her Myalgic encephalomyelitis (CFS) symptoms could be easily triggered by inducing her HR to go above 85 (Her average HR + 15). This makes plans for straightforward cardiac stress or resting scans challenging. The chest CT last month showed no pulmonary embolus, 1. Normal caliber thoracic aorta without dissection. There is a degree of ASCVD. There is a mild stenosis of the proximal left subclavian artery secondary to soft plaque. 3. 5 mm mildly spiculated pulmonary nodule, left lower lobe. Recommend follow-up CT chest in 12 months for the 5 mm left lower lobe Atypical chest pain with rising troponin -trend troponin peaked at 0.059 and is down to 0.035 -continue prasugrel and aspirin. -resting nuclear medicine cardiac scan was normal today. Follow up with Cardiology and PCP. Hypertension. Propanolol. Endometrial Abnormality (PCOS?). Continue Metformin. She does not have Diabetes (A1C 5.4) Hyperlipidemia. Chol 153 and LDL 56. She has been on Repatha with cardiology management. Hypothyroidism. Resumed home Synthroid. Hormone replacement therapy. Progesterone. Myalgic encephalomyelitis (CFS). Naltrexone, Propanolol, Ritalin, Levothyroxine, Guanfacine, Prozac and Baclofen Status at Discharge Cognitive/behavioral status at discharge: at baseline, oriented Functional status at discharge: independent ambulation Overall status at discharge: patient is back to baseline Time Spent with Patient Time spent: Less than 30 minutes Exam Vital Signs (past 8 hours): - 04/11/25 03:00 Temperature 96.9 F L Pulse Rate 70 Respiratory Rate 18 Blood Pressure 122/64 Pulse Oximetry 95 Oxygen Flow Rate 0 Oxygen Delivery Method Room Air Oxygen Flow Rate 0 Narrative Exam Narrative: Alert and oriented x3. No apparent distress. Sclerae are pink and nonicteric. Heart is regular rate and rhythm without murmur. There is no chest wall tenderness. Lungs are clear to auscultation bilaterally. Extremities have no ankle edema. Skin has no rash or jaundice. Neurologic exam is notable for 4/5 symmetric strength in all extremities. Objective Labs 04/10/25 11:23 04/10/25 11:23 Labs: Laboratory Results - last 24 hr 04/10/25 04/10/25 04/10/25 11:23 13:33 15:33 WBC 9.2 RBC 4.78 Hgb 14.5 Hct 43.1 MCV 90.1 MCH 30.2 MCHC 33.5 RDW 13.1 Plt Count 383 Neut % (Auto) 54.7 Lymph % (Auto) 34.8 [place] % (Auto) 5.9 Eos % (Auto) 4.2 H Baso % (Auto) 0.4 Neut # (Auto) 5000 Lymph # (Auto) 3200 [place] # (Auto) 500 Eos # (Auto) 400 Baso # (Auto) 0 PT 10.3 INR 0.9 APTT 29 Sodium 135 L Potassium 5.3 H Chloride 101 Carbon Dioxide 26 BUN 28 H Creatinine 0.77 Estimated GFR > 60 BUN/Creatinine Ratio 36.4 H Glucose 98 Calcium 8.8 Magnesium 2.0 Total Bilirubin 1.0 AST 39 H ALT 20 Alkaline Phosphatase 30 L Total Creatine Kinase 55 Troponin I 0.027 0.066 H 0.075 H NT-Pro-B Natriuret Pep 25 Total Protein 8.0 Albumin 4.7 Globulin 3.3 Albumin/Globulin Ratio 1.4 Lipase 69 04/10/25 04/11/25 21:05 03:11 WBC RBC Hgb Hct MCV MCH MCHC RDW Plt Count Neut % (Auto) Lymph % (Auto) [place] % (Auto) Eos % (Auto) Baso % (Auto) Neut # (Auto) Lymph # (Auto) [place] # (Auto) Eos # (Auto) Baso # (Auto) PT INR APTT Sodium Potassium Chloride Carbon Dioxide BUN Creatinine Estimated GFR BUN/Creatinine Ratio Glucose Calcium Magnesium Total Bilirubin AST ALT Alkaline Phosphatase Total Creatine Kinase Troponin I 0.059 H 0.035 H NT-Pro-B Natriuret Pep Total Protein Albumin Globulin Albumin/Globulin Ratio Lipase PFSH Medical History Postmenopausal bleeding Overweight (BMI 25.0-29.9) ADD (attention deficit disorder) Postmenopausal HRT (hormone replacement therapy) Onychomycosis of toenail Statin intolerance Elevated triglycerides with high cholesterol TIA (transient ischemic attack) Low TSH level Chronic diarrhea Insomnia Myalgic encephalomyelitis POTS (postural orthostatic tachycardia syndrome) Dysautonomia orthostatic hypotension syndrome Fibromyalgia Intermittent pain Depression CFS (chronic fatigue syndrome) (~2012) Restless leg syndrome Benign familial tremor Chicken pox (~1969) PCOS (polycystic ovarian syndrome) Gastric ulcer Insulin resistance Hyperlipidemia (~2016) Surgical History Anesthesia History of section (~1987) History of surgery (~2014) Family History Father Hypertension Mother Diabetes mellitus History of heart disease Hypertension Mental health problem Sister History of heart disease Mental health problem Hypertension Sister Mental health problem Melanoma Grandfather History of heart disease Grandmother Lung disease Grandfather History of heart disease Grandmother Pneumonia Social History household members: spouse Smoking Status: Never smoker alcohol intake: never Discharge Plan Discharge Plan Patient Disposition: Home Provider Discharge Comment: Follow up with your PCP Sandra Nunez and with windchill administrator Dr. Segundo mayer. Discharge orders & Medications Prescriptions: Continued Disabled Parking Permit See Rx Instructions .ROUTE .COMPLEX Qty: 1 0RF Rx Instructions: I find this patient to be medically disabled and qualify for disabled parking as indicated and signed on the accompanying disabled parking application for individuals. naltrexone 50 mg tablet See Rx Instructions .ROUTE .COMPLEX Qty: 90 3RF Patient Comments: taking 4.5mg nightly Rx Instructions: Take LDN starting at 1mg at bedtime daily, and titrate from there per [facility] protocol (has been on 1mg daily in liquid form). Pt prefers capsule.; Current dosage is 4.5 mg nightly. guanfacine 4 mg tablet extended release 24 hr 4 mg PO DAILY Qty: 90 3RF terbinafine HCl 250 mg tablet 250 mg PO DAILY Qty: 90 1RF liothyronine 5 mcg tablet 5 mcg PO DAILY Qty: 90 3RF propranolol 60 mg tablet 60 mg PO DAILY Patient Comments: 60 mg (extended release tablet) PO once daily evolocumab 140 mg/mL pen injector 140 mg SUBCUT Q2W doxepin 10 mg capsule 10 mg PO BEDTIME Qty: 90 0RF fluoxetine 40 mg capsule 40 mg PO QAM Qty: 90 1RF Rx Instructions: Take 1 capsule daily for depression baclofen 5 mg tablet 5 mg PO 3XD PRN (Reason: for muscle spasm) Qty: 90 2RF levothyroxine 25 mcg tablet 25 mcg PO DAILY Qty: 90 1RF fluticasone propionate [Allergy Relief (fluticasone)] 50 mcg/actuation spray,suspension 2 spray intranasal DAILY Qty: 16 3RF Rx Instructions: administer into each nostril melatonin 10 mg capsule 10 mg PO BEDTIME PRN (Reason: sleep) Patient Comments: 170mg daily Vitamin D3 [id number] See Rx Instructions .ROUTE .COMPLEX Rx Instructions: Pt takes [id number] daily with K2 supplements; omega-3 acid ethyl esters [Lovaza] 1 gram capsule 1 cap PO BID Qty: 180 3RF Rx Instructions: Take 1 cap twice daily methylphenidate HCl 10 mg tablet 10 mg PO DAILY Qty: 30 0RF Patient Comments: 10 mg in the afternoon methylphenidate HCl 20 mg tablet extended release 20 mg PO QAM Qty: 30 0RF Rx Instructions: Take 1 tab each morning in addition to 1 IR tab in the afternoon. aspirin [Adult Aspirin Regimen] 81 mg tablet,delayed release (DR/EC) 81 mg PO DAILY L carnitine 1,000 mg PO .QD vitamin E (dl, acetate) 400 unit capsule 400 unit PO DAILY semaglutide (weight loss) 0.25 mg/0.5 mL pen injector 0.25 mg SUBCUT QWEEK Qty: 6 3RF Rx Instructions: administer weeks 1 through 4 of therapy estradiol 2 mg tablet 2 mg PO DAILY Qty: 90 3RF metformin 500 mg tablet See Rx Instructions .ROUTE .COMPLEX Qty: 180 3RF Dose Instruction: TAKE 1 TABLET BY MOUTH TWICE DAILY FOR PCOS AND INSULIN RESISTANCE Rx Instructions: TAKE 1 TABLET BY MOUTH TWICE DAILY FOR PCOS AND INSULIN RESISTANCE progesterone micronized 200 mg capsule 200 mg PO BEDTIME Qty: 90 3RF All Day Allergy (cetirizine) 10 mg capsule 10 mg PO DAILY PRN (Reason: allergy symptoms) prasugrel HCl 10 mg tablet 10 mg PO DAILY Qty: 30 0RF Follow up/Referrals: Sandra Hussein FNP-BC [Primary Care Provider, Family Practice] Diet/Activity/Treatments Diet: Low-cholesterol Visit Report/Discharge Packet Stand Alone Forms: Patient Portal/API, Stroke Signs & Symptoms Discharge Data Primary Care Provider: Sandra Hussein Attending Provider: Syl Carbajal Admit Date/Time: 04/10/25 14:46
[2025-04-11] MEDS: LIOTHYRONINE 5 MCG TABLET PO (09:53)
[2025-04-11] MEDS: LEVOTHYROXINE 25 MCG TABLET PO (09:54)
[2025-04-11] MEDS: ASPIRIN EC 81 MG TABLET PO (09:54)
[2025-04-11 12:39] VITALS: BP 106/63; PULSE 77; RESP 17; TEMP 36.6; O2SAT 97
[2025-04-11] MEDS: ACETAMINOPHEN 325 MG TABLET 650 MG PO (12:47)
--- NOTE | 2025-04-11 14:20 | PC.NURSE ---
Pt is dressed and ready for discharge home. IV has been removed. D/C instructions reviewed, encouraged Pt to return to the ED or call 911 if she has chest pain. Pt denied other questions and was taken out via w/c by TENANT COORDINATOR to POV with all belongings.
--- NOTE | 2025-04-11 17:00 | DI.NM.S_ITS ---
DATE OF SERVICE: 04/11/2025 PHARMACOLOGICAL PERFUSION STUDY INDICATIONS: Chest pain with underlying type 2 DM, hyperlipidemia. RADIOPHARMACEUTICAL: 27.5 millicuries technetium-99m Myoview IV was injected at stress and 10.6 millicuries technetium-99m Myoview IV was injected at rest. CARDIAC STRESS: Patient underwent pharmacological perfusion study using IV Lexiscan, as per standard protocol under the supervision of an attending staff. She remained hemodynamically stable. Baseline blood pressure 122/78. Baseline rhythm sinus. During stress, no convincing ischemic changes or significant arrhythmias seen. The patient during Lexiscan had dyspnea, bilateral neck and shoulder and arm pressure, which slowly got resolved. No aminophylline was required. RAW DATA: Normal myocardial uptake. GATED STUDY: Resting LV ejection fraction 72% and stress LV ejection fraction 87% without any obvious wall motion abnormalities. Resting end- diastolic volume 54 with small LV. TID ratio 1.0, which is within normal limits. MYOCARDIAL PERFUSION SCAN: Stress supine, resting supine and stress prone images were compared to each other. There is a normal myocardial perfusion. CONCLUSION: This is a normal myocardial perfusion study without any ischemia or infarction. Summed stress score and summed rest score zero with difference score zero. Preserved resting LV function and hyperdynamic stress LV function. No ischemic EKG changes. Overall, low- risk study. Leticia Boateng - LANDY/isabel/ALIZE doc#: [id number]/job#: [id number] dd: 04/11/2025 12:56:00 dt: 04/11/2025 16:38:00 DICTATING MD/COPIES TO: Lay De La Cruz MD COPIES MNE: ELVIRA;
== END 2025-04-11 14:22 | disposition home or self-care (01) ==
LOC: ED 14:24 → AC 14:47
PROVIDERS: Admitting Provider Family Medicine; Emergency Provider Student in an Organized Health Care Education/Training Program; PCP Nurse Practitioner Family; Referring Provider Student in an Organized Health Care Education/Training Program; Visit Provider Family Medicine
DX: R07.89 Other chest pain (principal); R06.02 Shortness of breath; Z86.73 Personal history of transient ischemic attack (TIA), and cerebral infarction without residual deficits; E78.5 Hyperlipidemia, unspecified; E03.9 Hypothyroidism, unspecified; G93.32 Myalgic encephalomyelitis/chronic fatigue syndrome; Z79.82 Long term (current) use of aspirin; E11.9 Type 2 diabetes mellitus without complications; Z79.84 Long term (current) use of oral hypoglycemic drugs; G90.A Postural orthostatic tachycardia syndrome [POTS]; Z79.890 Hormone replacement therapy; I10 Essential (primary) hypertension; R79.89 Other specified abnormal findings of blood chemistry
CPT/HCPCS: 36415; 71045; 78452; 80053; 82550; 83690; 83735; 83880; 84484; 85025; 85610; 85730; 93005; 93017; 96361; 96374; 99284; G0378; A9502; J2785

== ENCOUNTER → 2025-04-15 15:37 | Outpatient (CLI) | payer OTHER, SELFPAY ==
[2025-03-25 03:28] VITALS: BMI 25.7
--- NOTE | 2025-04-15 15:37 | DI.MG.S_ITS ---
MM screening mammo BI: 04/15/2025. BI-RADS: 0 CLINICAL: 64-year old female for bilateral screening mammogram. Tyrer-Cuzick lifetime risk of 6.5%. No personal or first-degree family history of breast cancer. PRIOR EXAMS 01/10/2023, 06/04/2018, 07/11/2014. MAMMOGRAPHY TECHNIQUE: 2D and 3D (tomosynthesis) digital mammographic views obtained, with additional images as needed for full coverage. Current study was also evaluated with a Computer Aided Detection (CAD) system. DENSITY C. The breasts are heterogeneously dense, which may obscure small masses. MAMMOGRAPHY FINDINGS Right: No suspicious mass, asymmetry, microcalcification, or other abnormality seen. Left: Outer Central, Middle depth: Mass needing additional imaging evaluation. IMPRESSION: Right * No evidence of malignancy. Left (Mass): Outer Central, Middle depth * Incomplete - mass needing additional imaging evaluation. RECOMMENDATIONS Left: Outer Central, Middle depth * Further evaluation with diagnostic mammography and diagnostic ultrasound. Ultrasound to be performed only if needed. OVERALL ASSESSMENT CATEGORY BI-RADS-0: Incomplete - Need Additional Imaging Evaluation. ELECTRONICALLY SIGNED: Emely Grant M.D. on 04/15/2025 at 09:45:49 PM PT Interpreting Station ID: [id number]
== END ==
LOC: MAMMO 15:37
PROVIDERS: PCP Nurse Practitioner Family; Referring Provider Nurse Practitioner Family; Visit Provider Nurse Practitioner Family
DX: Z12.31 Encounter for screening mammogram for malignant neoplasm of breast (principal); R92.333 Mammographic heterogeneous density, bilateral breasts
CPT/HCPCS: 77063; 77067

== ENCOUNTER → 2025-05-16 13:33 | Outpatient (CLI) | payer OTHER, SELFPAY ==
[2025-04-10 16:27] VITALS: BMI 25.0
--- NOTE | 2025-05-16 13:34 | DI.MG.S_ITS ---
MM diagnostic mammo unilat LT, US breast LT limited: 05/16/2025 BI-RADS: 4A CLINICAL: 64-year old female for left diagnostic mammogram and left diagnostic breast ultrasound that is a recall from screening on 04/15/2025. Tyrer-Cuzick lifetime risk of 6.5%. No personal or first-degree family history of breast cancer. PRIOR EXAMS Mammogram(s): 04/15/2025, 01/10/2023, 06/04/2018, 07/11/2014. MAMMOGRAPHY TECHNIQUE: 2D and 3D (tomosynthesis) digital mammographic views obtained, with additional images as needed for full coverage. Current study was also evaluated with a Computer Aided Detection (CAD) system. ULTRASOUND TECHNIQUE: Real-time graham scale and color doppler imaging of the area of clinical interest was performed with image documentation. TARGETED Left Breast Ultrasound: Real-time ultrasound exam was performed focused to area of clinical and/or imaging concern. DENSITY Left: C. The breast is heterogeneously dense, which may obscure small masses. MAMMOGRAPHY FINDINGS Left (finding-1): Outer Central, Middle depth, measuring 1.5cm: Correlating with findings on screening mammogram there is a circumscribed, oval, equal-density mass present. This is new compared to the prior mammograms. ULTRASOUND FINDINGS Left (finding-1): Outer at 3:00, 6 cm from nipple, measuring 1.2 x 0.5 x 1.4 cm: Correlating with findings on mammogram there is an oval, circumscribed, hypoechoic cyst vs solid mass that is parallel. Doppler shows no vascularity. Left: Upper Outer at 2:00, 6 cm from nipple, measuring 0.4 x 0.4 x 0.3 cm: There is an oval, circumscribed, hypoechoic cyst vs solid mass that is parallel. Doppler shows no vascularity. This is an incidental finding. Left: Axilla: No abnormal lymph nodes are seen in the axilla. IMPRESSION: Left (CvS): Outer at 3:00, 6 cm from nipple, measuring 1.2 x 0.5 x 1.4 cm * Low Suspicion for Malignancy. Left (CvS): Upper Outer at 2:00, 6 cm from nipple, measuring 0.4 x 0.4 x 0.3 cm * Probably Benign. RECOMMENDATIONS Left: Outer at 3:00, 6 cm from nipple * Ultrasound-guided biopsy for further evaluation. Left: Upper Outer at 2:00, 6 cm from nipple * Recommend further management pending biopsy results. If pathology is benign, recommend short interval ultrasound follow up in 6 months. COMMENTS: Findings and recommendations were conveyed to the patient during today's evaluation by Dr. Grant. OVERALL ASSESSMENT CATEGORY BI-RADS-4: Suspicious. ELECTRONICALLY SIGNED: Emely Grant M.D. on 05/16/2025 at 03:40:12 PM PT Interpreting Station ID: [id number]
== END ==
PROVIDERS: PCP Nurse Practitioner Family; Referring Provider Nurse Practitioner Family; Visit Provider Nurse Practitioner Family
DX: N63.21 Unspecified lump in the left breast, upper outer quadrant (principal); R92.8 Other abnormal and inconclusive findings on diagnostic imaging of breast; R92.332 Mammographic heterogeneous density, left breast
CPT/HCPCS: 76642; 77065; G0279

== ENCOUNTER 2025-05-17 10:32 | Emergency (ER) | payer OTHER, SELFPAY ==
[2025-04-10 16:27] VITALS: BMI 25.0
[2025-05-17] VITALS (31 sets, daily range): BP systolic 103–138; BP diastolic 55–83; PULSE 71–93; RESP 10–24; TEMP 36.4; O2SAT 94–100; BMI 23.8
--- NOTE | 2025-05-17 10:37 | DI.RAD.S_ITS ---
PROCEDURE: XR CHEST 1V INDICATIONS: Chest Pain TECHNIQUE: One view of the chest was acquired. COMPARISON: [facility], CR, XR CHEST 1V, 04/10/2025, 11:00. FINDINGS: Surgical changes and devices: None. Lungs and pleura: Lungs are clear. No pleural effusions or pneumothorax. Mediastinum: Mediastinal contours appear normal. Heart size is normal. Bones and chest wall: No suspicious bony lesions. Overlying soft tissues appear unremarkable. IMPRESSION: No acute cardiopulmonary abnormality is seen. Dictated by: Janet Rocha MD, PhD on 05/17/2025 at 10:57 Approved by: Janet Rocha MD, PhD on 05/17/2025 at 10:57
--- NOTE | 2025-05-17 10:38 | EKG_ITS ---
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
--- NOTE | 2025-05-17 10:55 | ED.CHESTPAIN ---
HPI - Chest Pain <Sherri London, DO - Last Filed: 05/21/25 08:00> General Chief Complaint: Chest Pain Stated Complaint: Severe Chest pain x 7 days Time Seen by Provider: 05/17/25 10:43 Source: patient and family Mode of arrival: Ambulatory Limitations: no limitations History of Present Illness HPI narrative: Patient is a 64-year-old female history of TIA hyperlipidemia non insulin-dependent diabetes myalgic encephalomyelitis hormonal replacement therapy with estrogen and progesterone, POTS hypothyroidism presenting today with ongoing chest pain. She has a admitted twice for something similar. She has been seen evaluated by Cardiology working diagnosis is acid reflux. She has been taking H2 kiara twice daily she reports that she is supposed to take Tums when she gets an episode. However over the last 5 days she has had increasing episodes and since 3:00 a.m. this morning she is now on her 3rd episode. Each episode lasts about 45 minutes she takes Tums it does feel like it goes away. However now she is having back pain. She does get bilateral arm pain with these. She is not significantly short of breath. Prior to today's visit she took a full dose aspirin and Tums prior to arrival no longer having chest pain. He said back pain is different and new. She had a nuclear stress test 04/11/2025 said normal perfusion without any ischemia She also had a CT chest angio in 03/25/2025 which did not show any dissection she does have some mild stenosis and left subclavian artery plaque Related Data Home Medications ?Medication ?Instructions ?Recorded ?Confirmed L carnitine 1,000 mg PO .QD 07/27/19 04/22/25 vitamin E (dl, acetate) 180 mg 400 unit PO DAILY 07/27/19 04/22/25 (400 unit) capsule evolocumab 140 mg/mL subcutaneous 140 mg SUBCUT Q2W 01/06/25 04/22/25 pen injector propranolol 60 mg tablet 60 mg PO DAILY 01/06/25 04/22/25 aspirin 81 mg tablet,delayed 81 mg PO DAILY 02/28/25 04/22/25 release (Adult Aspirin Regimen) cetirizine 10 mg capsule (All Day 10 mg PO DAILY PRN allergy symptoms 03/25/25 04/22/25 Allergy (cetirizine)) D-Ribose PO DAILY 04/13/25 04/22/25 Vitamin D3 5000iu See Rx Instructions .Route .COMPLEX 04/13/25 04/22/25 acetaminophen 500 mg tablet 500 mg PO Q6H PRN 04/13/25 04/22/25 ascorbic acid (vitamin C) 1,000 mg 1,000 mg PO DAILY 04/13/25 04/22/25 tablet coenzyme Q10 100 mg tablet 100 mg PO DAILY 04/13/25 04/22/25 magnesium glycinate 100 mg (as 400 mg PO DAILY 04/13/25 04/22/25 glycinate) tablet magnesium malate PO DAILY 04/13/25 04/22/25 mecobalamin (vitamin B12) 1,000 1,000 mcg PO DAILY 04/13/25 04/22/25 mcg chewable tablet melatonin 10 mg capsule See Rx Instructions PO BEDTIME PRN 04/13/25 04/22/25 sleep omega-3 fatty acids 1,000 mg 1,400 mg PO DAILY 04/13/25 04/22/25 capsule thiamine HCl (vitamin B1) 500 mg 1,500 mg PO DAILY 04/13/25 04/22/25 tablet turmeric curcumin complex PO DAILY 04/13/25 04/22/25 Previous Rx's ?Medication ?Instructions ?Recorded Disabled Parking Permit See Rx Instructions .Route 10/11/20 .COMPLEX #1 unit semaglutide (weight loss) 0.25 0.25 mg (0.5 mL) SUBCUT QWEEK #6 mL 06/09/24 mg/0.5 mL subcutaneous pen injector naltrexone 50 mg tablet See Rx Instructions .Route 06/30/24 .COMPLEX #90 tabs guanfacine 4 mg tablet,extended 4 mg PO DAILY #90 tabs 07/22/24 release 24 hr terbinafine HCl 250 mg tablet 250 mg PO DAILY #90 tabs 11/18/24 liothyronine 5 mcg tablet 5 mcg PO DAILY #90 tabs 12/15/24 methylphenidate HCl 10 mg tablet 10 mg PO DAILY #30 tabs 12/30/24 methylphenidate HCl 20 mg 20 mg PO QAM #30 tabs 12/30/24 tablet,extended release doxepin 10 mg capsule 10 mg PO BEDTIME #90 caps 03/07/25 fluoxetine 40 mg capsule 40 mg PO QAM #90 caps 03/14/25 baclofen 5 mg tablet 5 mg PO 3XD PRN for muscle spasm 03/23/25 #90 tabs fluticasone propionate 50 2 spray intranasal DAILY #16 grams 03/24/25 mcg/actuation nasal spray,suspension (Allergy Relief (fluticasone)) levothyroxine 25 mcg tablet 25 mcg PO DAILY #90 tabs 03/24/25 estradiol 2 mg tablet 2 mg PO DAILY #90 tabs 04/29/25 metformin 500 mg tablet See Rx Instructions .Route 04/29/25 .COMPLEX #180 tabs progesterone micronized 200 mg 200 mg PO BEDTIME #90 caps 04/29/25 capsule Allergies Allergy/AdvReac Type Severity Reaction Status Date / Time aspirin Allergy gastric Verified 05/17/25 11:52 ulcers gluten Allergy Verified 05/17/25 11:52 NSAIDS (Non-Steroidal Allergy gastric Verified 05/17/25 11:52 Anti-Inflamma ulcers ezetimibe AdvReac Intermediate Muscle Pain Verified 05/17/25 11:52 inositol niacinate (From AdvReac Intermediate flushing Verified 05/17/25 11:52 Niacin No Flush) niacin (From Niacin No Flush) AdvReac Intermediate flushing Verified 05/17/25 11:52 Patient History <Sherri London DO - Last Filed: 05/21/25 08:00> Medical History Postmenopausal bleeding Overweight (BMI 25.0-29.9) ADD (attention deficit disorder) Postmenopausal HRT (hormone replacement therapy) Onychomycosis of toenail Statin intolerance Elevated triglycerides with high cholesterol TIA (transient ischemic attack) Low TSH level Chronic diarrhea Insomnia Myalgic encephalomyelitis POTS (postural orthostatic tachycardia syndrome) Dysautonomia orthostatic hypotension syndrome Fibromyalgia Intermittent pain Depression CFS (chronic fatigue syndrome) (~2012) Restless leg syndrome Benign familial tremor Chicken pox (~1969) PCOS (polycystic ovarian syndrome) Gastric ulcer Insulin resistance Hyperlipidemia (~2016) Surgical History Anesthesia History of section (~1987) History of surgery (~2014) Family History Father Hypertension Mother Diabetes mellitus History of heart disease Hypertension Mental health problem Sister History of heart disease Mental health problem Hypertension Sister Mental health problem Melanoma Grandfather History of heart disease Grandmother Lung disease Grandfather History of heart disease Grandmother Pneumonia Social History household members: spouse alcohol intake: never alcohol intake frequency: holidays/special occasions only Exam <Sherri London DO - Last Filed: 05/21/25 08:00> Initial Vital Signs Initial Vital Signs: Vital Signs Temperature 97.5 F L 05/17/25 10:41 Pulse Rate 72 05/17/25 10:41 Respiratory Rate 18 05/17/25 10:41 Blood Pressure 128/78 05/17/25 10:41 Pulse Oximetry 100 05/17/25 10:41 Oxygen Delivery Method Room Air 05/17/25 10:41 GENERAL: Alert 64-year-old female, appears uncomfortable and in [no acute] distress. HEENT: Head atraumatic,EOMI, pupils reactive, face symmetric, [moist] mucous membranes CARDIOVASCULAR: Regular rate and rhythm without murmurs, rubs or gallops. RESPIRATORY: Breath sounds equal bilaterally, no wheezes rales or rhonchi. ABDOMEN: Soft, nontender. Normoactive bowel sounds all 4 quadrants. No guarding or rebound. EXTREMITIES: Normal range of motion, no clubbing or edema. Neurovascularly intact NEUROLOGICAL: Alert and oriented x4.Normal gait and speech. Cranial nerves II through XII grossly intact. SKIN: Warm, dry, no laceration, no petechiae, no rashes or lesions. <Avis Bella DO - Last Filed: 05/17/25 23:23> Initial Vital Signs Initial Vital Signs: Vital Signs Temperature 97.5 F L 05/17/25 10:41 Pulse Rate 72 05/17/25 10:41 Respiratory Rate 18 05/17/25 10:41 Blood Pressure 128/78 05/17/25 10:41 Pulse Oximetry 100 05/17/25 10:41 Oxygen Delivery Method Room Air 05/17/25 10:41 Course <Sherri London DO - Last Filed: 05/21/25 08:00> Orders Ordered: Discontinued Medications Acetaminophen (Acetaminophen 325 Mg Tablet) 650 mg PO NOW ONE Stop: 05/17/25 15:48 Last Admin: 05/17/25 15:51 Dose: 650 mg Documented By: [facility] Aspirin (Aspirin 81 Mg Chew Tab) 324 mg PO NOW ONE Stop: 05/17/25 10:38 Last Admin: 05/17/25 10:39 Dose: Not Given Documented By: SONNY Sodium Chloride (Normal Saline 0.9%) 500 mls @ 1,000 mls/hr IV BOLUS ONE Stop: 05/17/25 14:31 Last Infusion: 05/17/25 15:48 Dose: Infused Documented By: RLAlmaz Admin: 05/17/25 14:08 Dose: 1,000 mls/hr Documented By: RLAlmaz Sodium Chloride (Normal Saline 0.9%) 1,000 mls @ 125 mls/hr IV CONT YOSEF Last Infusion: 05/17/25 23:30 Dose: Infused Documented By: Admin: 05/17/25 22:26 Dose: 125 mls/hr Documented By: CLIVE Vital Signs Vital signs: Vital Signs - 8 hr 05/17/25 15:33 05/17/25 15:35 05/17/25 15:35 Pulse Rate 83 87 Respiratory Rate 13 12 Blood Pressure 124/73 Pulse Oximetry 99 97 Oxygen Delivery Method 05/17/25 16:00 05/17/25 16:00 05/17/25 16:30 Pulse Rate 76 74 Respiratory Rate 12 13 Blood Pressure 130/58 L Pulse Oximetry 99 98 Oxygen Delivery Method 05/17/25 16:30 05/17/25 17:00 05/17/25 17:00 Pulse Rate 79 Respiratory Rate 11 L Blood Pressure 114/69 121/57 L Pulse Oximetry 98 Oxygen Delivery Method 05/17/25 17:30 05/17/25 17:30 05/17/25 18:00 Pulse Rate 73 Respiratory Rate 16 Blood Pressure 136/62 133/75 Pulse Oximetry 97 Oxygen Delivery Method 05/17/25 18:00 05/17/25 18:30 05/17/25 18:30 Pulse Rate 77 75 Respiratory Rate 16 24 Blood Pressure 135/72 Pulse Oximetry 98 96 Oxygen Delivery Method 05/17/25 20:00 05/17/25 20:01 05/17/25 20:01 Pulse Rate 81 81 Respiratory Rate 17 13 Blood Pressure 137/58 L Pulse Oximetry 97 97 Oxygen Delivery Method 05/17/25 20:30 05/17/25 20:30 05/17/25 21:27 Pulse Rate 79 93 H Respiratory Rate 12 Blood Pressure 127/61 Pulse Oximetry 95 99 Oxygen Delivery Method Room Air 05/17/25 21:28 05/17/25 21:29 05/17/25 21:29 Pulse Rate 89 86 Respiratory Rate 14 Blood Pressure 138/83 138/83 Pulse Oximetry 100 99 Oxygen Delivery Method Room Air 05/17/25 21:30 Pulse Rate 85 Respiratory Rate 16 Blood Pressure Pulse Oximetry 99 Oxygen Delivery Method Room Air <Avis Bella DO - Last Filed: 05/17/25 23:23> Orders Ordered: Discontinued Medications Acetaminophen (Acetaminophen 325 Mg Tablet) 650 mg PO NOW ONE Stop: 05/17/25 15:48 Last Admin: 05/17/25 15:51 Dose: 650 mg Documented By: JUAN Aspirin (Aspirin 81 Mg Chew Tab) 324 mg PO NOW ONE Stop: 05/17/25 10:38 Last Admin: 05/17/25 10:39 Dose: Not Given Documented By: SONNY Sodium Chloride (Normal Saline 0.9%) 500 mls @ 1,000 mls/hr IV BOLUS ONE Stop: 05/17/25 14:31 Last Infusion: 05/17/25 15:48 Dose: Infused Documented By: Admin: 05/17/25 14:08 Dose: 1,000 mls/hr Documented By: JUAN Sodium Chloride (Normal Saline 0.9%) 1,000 mls @ 125 mls/hr IV CONT YOSEF Last Infusion: 05/17/25 23:30 Dose: Infused Documented By: Admin: 05/17/25 22:26 Dose: 125 mls/hr Documented By: CLIVE Vital Signs Vital signs: Vital Signs - 8 hr 05/17/25 15:33 05/17/25 15:35 05/17/25 15:35 Pulse Rate 83 87 Respiratory Rate 13 12 Blood Pressure 124/73 Pulse Oximetry 99 97 Oxygen Delivery Method 05/17/25 16:00 05/17/25 16:00 05/17/25 16:30 Pulse Rate 76 74 Respiratory Rate 12 13 Blood Pressure 130/58 L Pulse Oximetry 99 98 Oxygen Delivery Method 05/17/25 16:30 05/17/25 17:00 05/17/25 17:00 Pulse Rate 79 Respiratory Rate 11 L Blood Pressure 114/69 121/57 L Pulse Oximetry 98 Oxygen Delivery Method 05/17/25 17:30 05/17/25 17:30 05/17/25 18:00 Pulse Rate 73 Respiratory Rate 16 Blood Pressure 136/62 133/75 Pulse Oximetry 97 Oxygen Delivery Method 05/17/25 18:00 05/17/25 18:30 05/17/25 18:30 Pulse Rate 77 75 Respiratory Rate 16 24 Blood Pressure 135/72 Pulse Oximetry 98 96 Oxygen Delivery Method 05/17/25 20:00 05/17/25 20:01 05/17/25 20:01 Pulse Rate 81 81 Respiratory Rate 17 13 Blood Pressure 137/58 L Pulse Oximetry 97 97 Oxygen Delivery Method 05/17/25 20:30 05/17/25 20:30 05/17/25 21:27 Pulse Rate 79 93 H Respiratory Rate 12 Blood Pressure 127/61 Pulse Oximetry 95 99 Oxygen Delivery Method Room Air 05/17/25 21:28 05/17/25 21:29 05/17/25 21:29 Pulse Rate 89 86 Respiratory Rate 14 Blood Pressure 138/83 138/83 Pulse Oximetry 100 99 Oxygen Delivery Method Room Air 05/17/25 21:30 Pulse Rate 85 Respiratory Rate 16 Blood Pressure Pulse Oximetry 99 Oxygen Delivery Method Room Air MDM - Chest Pain <Sherri London, DO - Last Filed: 05/21/25 08:00> Lab Data 05/17/25 10:45 05/17/25 10:45 Labs: Lab Results 05/17/25 05/17/25 05/17/25 Range/Units 10:45 13:15 16:00 WBC 9.3 (4.5-11.0) X10^3/uL RBC 4.81 (4.0-5.2) X10^6/uL Hgb 14.7 (12.0-16.0) g/dL Hct 43.4 (36-46) % MCV 90.2 (80-100) fL MCH 30.5 (26-34) PG MCHC 33.8 (30-36) % RDW 13.2 (11.6-14.8) % Plt Count 484 H (150-400) X10^3/uL Neut % (Auto) 39.7 L (50-75) % Lymph % (Auto) 49.6 H (25-40) % [place] % (Auto) 5.9 (3-14) % Eos % (Auto) 4.5 H (2-4) % Baso % (Auto) 0.3 (0-2) % Neut # (Auto) 3700 (0042-5378) /uL Lymph # (Auto) 4600 H (0719-0775) /uL [place] # (Auto) 500 (0-900) /uL Eos # (Auto) 400 (0-450) /uL Baso # (Auto) 0 (0-100) /uL PT 10.7 (9.4-12.5) SECONDS INR 0.9 (0.9-1.3) APTT 28 (25.1-36.5) SECONDS Sodium 133 L (137-145) mmol/L Potassium 4.3 (3.4-5.1) mmol/L Chloride 99 (98-107) mmol/L Carbon Dioxide 24 (22-32) mmol/L BUN 28 H (7-17) mg/dL Creatinine 0.75 (0.52-1.04) mg/dL Estimated GFR > 60 (>60) mL/min BUN/Creatinine Ratio 37.3 H (6-22) Glucose 101 H (70-99) mg/dL Calcium 9.4 (8.4-10.2) mg/dL Magnesium 1.9 (1.6-2.3) mg/dL Total Bilirubin 0.6 (0.2-1.3) mg/dL AST 29 (14-36) IU/L ALT 17 (<35) IU/L Alkaline Phosphatase 38 (38-126) U/L Total Creatine Kinase 37 (30-135) U/L Troponin I 0.018 0.046 H 0.042 H (0.01-0.034) ng/mL NT-Pro-B Natriuret Pep 184 H (<125) pg/mL Total Protein 7.6 (6.3-8.2) g/dL Albumin 4.5 (3.5-5.0) g/dL Globulin 3.1 (1.7-4.1) g/dL Albumin/Globulin Ratio 1.5 (1.0-2.8) Lipase 89 (23-300) U/L Imaging Data Chest x-ray: Radiologist's Impression: PROCEDURE: XR CHEST 1V INDICATIONS: Chest Pain TECHNIQUE: One view of the chest was acquired. COMPARISON: [facility], CR, XR CHEST 1V, 04/10/2025, 11:00. FINDINGS: Surgical changes and devices: None. Lungs and pleura: Lungs are clear. No pleural effusions or pneumothorax. Mediastinum: Mediastinal contours appear normal. Heart size is normal. Bones and chest wall: No suspicious bony lesions. Overlying soft tissues appear unremarkable. IMPRESSION: No acute cardiopulmonary abnormality is seen. ECG Data Attestation: I personally reviewed and interpreted this ECG as follows: Prior ECG tracings: available for review Interpretation: Sinus rhythm rate 71 FL interval 150 QRS [address] changes no T-wave inversion MDM Narrative Medical decision making narrative: MDM CC: Chest pain Complicating co-morbidities: Garde hypothyroid diabetes, chronic fatigue syndrome Data collected from: Patient previous visits Medical records reviewed: Previous PCP visit and admissions. 04/11/25 nuclear stress test normal myocardial perfusion Highest troponin elevation 0.089 and then down trending she had another peak of 0.075 Differential considered: Acute coronary syndrome, acid reflux pulmonary embolus Exam documented above, pertinent findings include: Patient 64 year old female appears slightly uncomfortable chest pain is not reproducible breath sounds are equal bilaterally no respiratory distress no peripheral edema Lab Test results independently reviewed as above. Pertinent findings: Troponin 0.018-->0.046 CBC no leukocytosis no anemia CMP no electrolyte abnormalities, sodium is slightly low 133 creatinine 0.75 Bilirubin liver enzymes within normal limits lipase 89 Independently reviewed EKG as above Sinus rhythm without ischemia Imaging studies independently reviewed: Chest x-ray no acute cardiopulmonary process Consultations: 1428 Dr. Matos cardiology updated patient's symptoms test results recommends echocardiogram if there is wall motion abnormality then may need an angiogram Treatments: Aspirin IV fluid Re-evaluations: Patient is feeling better. The chemistry analyzer was down so results did take awhile for the initial troponin. Repeat troponin is rising, 3rd troponin is pending Discussion: Patient is 64-year-old female history of hyperlipidemia diabetes chronic fatigue syndrome presenting today with chest pain and bilateral arm pain. This is happened to her before she always has a indeterminate troponin she has never had the T0 grab had a nuclear stress test that was negative. Patient thinks that she had an echocardiogram however cardiology recommended repeating an echo if there is wall motion abnormality may need further evaluation. Patient is no longer having any chest pain. At a very high suspicion for coronary arterial disease based on presentation persistent to be elevated troponin Patient signed out to Dr. Bella for further disposition <Avis Calvertk, DO - Last Filed: 05/17/25 23:23> Lab Data Labs: Lab Results 05/17/25 05/17/25 05/17/25 Range/Units 10:45 13:15 16:00 WBC 9.3 (4.5-11.0) X10^3/uL RBC 4.81 (4.0-5.2) X10^6/uL Hgb 14.7 (12.0-16.0) g/dL Hct 43.4 (36-46) % MCV 90.2 (80-100) fL MCH 30.5 (26-34) PG MCHC 33.8 (30-36) % RDW 13.2 (11.6-14.8) % Plt Count 484 H (150-400) X10^3/uL Neut % (Auto) 39.7 L (50-75) % Lymph % (Auto) 49.6 H (25-40) % [place] % (Auto) 5.9 (3-14) % Eos % (Auto) 4.5 H (2-4) % Baso % (Auto) 0.3 (0-2) % Neut # (Auto) 3700 (4442-4447) /uL Lymph # (Auto) 4600 H (7650-1484) /uL [place] # (Auto) 500 (0-900) /uL Eos # (Auto) 400 (0-450) /uL Baso # (Auto) 0 (0-100) /uL PT 10.7 (9.4-12.5) SECONDS INR 0.9 (0.9-1.3) APTT 28 (25.1-36.5) SECONDS Sodium 133 L (137-145) mmol/L Potassium 4.3 (3.4-5.1) mmol/L Chloride 99 (98-107) mmol/L Carbon Dioxide 24 (22-32) mmol/L BUN 28 H (7-17) mg/dL Creatinine 0.75 (0.52-1.04) mg/dL Estimated GFR > 60 (>60) mL/min BUN/Creatinine Ratio 37.3 H (6-22) Glucose 101 H (70-99) mg/dL Calcium 9.4 (8.4-10.2) mg/dL Magnesium 1.9 (1.6-2.3) mg/dL Total Bilirubin 0.6 (0.2-1.3) mg/dL AST 29 (14-36) IU/L ALT 17 (<35) IU/L Alkaline Phosphatase 38 (38-126) U/L Total Creatine Kinase 37 (30-135) U/L Troponin I 0.018 0.046 H 0.042 H (0.01-0.034) ng/mL NT-Pro-B Natriuret Pep 184 H (<125) pg/mL Total Protein 7.6 (6.3-8.2) g/dL Albumin 4.5 (3.5-5.0) g/dL Globulin 3.1 (1.7-4.1) g/dL Albumin/Globulin Ratio 1.5 (1.0-2.8) Lipase 89 (23-300) U/L MDM Narrative Medical decision making narrative: MDM CC: Chest pain Complicating co-morbidities: Garde hypothyroid diabetes, chronic fatigue syndrome Data collected from: Patient previous visits Medical records reviewed: Previous PCP visit and admissions. 04/11/25 nuclear stress test normal myocardial perfusion Highest troponin elevation 0.089 and then down trending she had another peak of 0.075 Differential considered: Acute coronary syndrome, acid reflux pulmonary embolus Exam documented above, pertinent findings include: Patient 64 year old female appears slightly uncomfortable chest pain is not reproducible breath sounds are equal bilaterally no respiratory distress no peripheral edema Lab Test results independently reviewed as above. Pertinent findings: Troponin 0.018-->0.046 CBC no leukocytosis no anemia CMP no electrolyte abnormalities, sodium is slightly low 133 creatinine 0.75 Bilirubin liver enzymes within normal limits lipase 89 Independently reviewed EKG as above Sinus rhythm without ischemia Imaging studies independently reviewed: Chest x-ray no acute cardiopulmonary process Consultations: 1428 Dr. Matos cardiology updated patient's symptoms test results recommends echocardiogram if there is wall motion abnormality then may need an angiogram Treatments: Aspirin IV fluid Re-evaluations: Patient is feeling better. The chemistry analyzer was down so results did take awhile for the initial troponin. Repeat troponin is rising, 3rd troponin is pending Discussion: Patient is 64-year-old female history of hyperlipidemia diabetes chronic fatigue syndrome presenting today with chest pain and bilateral arm pain. This is happened to her before she always has a indeterminate troponin she has never had the T0 grab had a nuclear stress test that was negative. Patient thinks that she had an echocardiogram however cardiology recommended repeating an echo if there is wall motion abnormality may need further evaluation. Patient is no longer having any chest pain. At a very high suspicion for coronary arterial disease based on presentation persistent to be elevated troponin Patient signed out to Dr. Bella for further disposition 05/17/25 Dr. Bella: Patient signed out to myself. Patient is seen and evaluated by myself patient's EKGs were reviewed no acute dynamic changes, troponin has been indeterminate but went from negative to indeterminate with a slightly crease but still indeterminate on repeat. Patient describes chest discomfort radiating to both arms has been intermittent episodes of 15-20 minutes has been coming increasingly frequent over the past week has had prior stress test which was negative is following with the cardiology does have cardiac risk factors. Took aspirin 324 mg last night. Was not waiting echo left ventricle is normal in size overall left ventricular systolic function preserved no obvious focal wall motion abnormalities but poor endocardial definition reduce his sensitivity. Study quality was technically difficult comparison was made a echo from 03/26/2025 normal sinus rhythm during the exam. No mitral regurg no aortic regurg no tricuspid regurg. Labs shows platelets of 44, white count and hemoglobin are appropriate. Sodium is 133 BUN 28 electrolytes are appropriate otherwise glucose is 101, initial troponin 0.018 with a repeat of 0 0.046 and a after that is 0.042 with a BNP of 184. Chest x-ray shows no acute change. Repeat EKG shows sinus rhythm rate 82 FL 152 QRS is 74 QTC of [address] changes in comparison to EKG from earlier today Did review patient had CTA of the chest in February of 2025 with normal caliber thoracic aorta at that time there was some mild stenosis proximal left subclavian artery secondary to soft plaque. 5 mm mildly spiculated pulmonary nodule left lower lobe. Patient had Tylenol, fluids, took aspirin 324 mg at home. Re-contact to Cardiology, concern for unstable angina. Spoke with Dr. Black, transfer to [facility] possible heart catheterization in the next 24 hours. Contact at [facility] they do not currently have any beds available. Spoke with the Suha milton, coordinator at [address]. Spoke with Dr. Horn @ 2041 accepts for transfer to [facility] Patient signed out to Dr. Harris while awaiting transport. Discharge Plan Departure Patient Disposition: Xfer Acute Care Hospital Clinical Impression: Chest pain Prescriptions: No Action Disabled Parking Permit See Rx Instructions .ROUTE .COMPLEX Qty: 1 0RF Rx Instructions: I find this patient to be medically disabled and qualify for disabled parking as indicated and signed on the accompanying disabled parking application for individuals. naltrexone 50 mg tablet See Rx Instructions .ROUTE .COMPLEX Qty: 90 3RF Patient Comments: taking 4.5mg nightly Rx Instructions: Take LDN starting at 1mg at bedtime daily, and titrate from there per [facility] protocol (has been on 1mg daily in liquid form). Pt prefers capsule.; Current dosage is 4.5 mg nightly. guanfacine 4 mg tablet extended release 24 hr 4 mg PO DAILY Qty: 90 3RF terbinafine HCl 250 mg tablet 250 mg PO DAILY Qty: 90 1RF liothyronine 5 mcg tablet 5 mcg PO DAILY Qty: 90 3RF propranolol 60 mg tablet 60 mg PO DAILY Patient Comments: 60 mg (extended release tablet) PO once daily evolocumab 140 mg/mL pen injector 140 mg SUBCUT Q2W doxepin 10 mg capsule 10 mg PO BEDTIME Qty: 90 0RF fluoxetine 40 mg capsule 40 mg PO QAM Qty: 90 1RF Rx Instructions: Take 1 capsule daily for depression baclofen 5 mg tablet 5 mg PO 3XD PRN (Reason: for muscle spasm) Qty: 90 2RF levothyroxine 25 mcg tablet 25 mcg PO DAILY Qty: 90 1RF fluticasone propionate [Allergy Relief (fluticasone)] 50 mcg/actuation spray,suspension 2 spray intranasal DAILY Qty: 16 3RF Rx Instructions: administer into each nostril metformin 500 mg tablet See Rx Instructions .ROUTE .COMPLEX Qty: 180 3RF Dose Instruction: TAKE 1 TABLET BY MOUTH TWICE DAILY FOR PCOS AND INSULIN RESISTANCE Rx Instructions: TAKE 1 TABLET BY MOUTH TWICE DAILY FOR PCOS AND INSULIN RESISTANCE estradiol 2 mg tablet 2 mg PO DAILY Qty: 90 3RF progesterone micronized 200 mg capsule 200 mg PO BEDTIME Qty: 90 3RF methylphenidate HCl 10 mg tablet 10 mg PO DAILY Qty: 30 0RF Patient Comments: 10 mg in the afternoon methylphenidate HCl 20 mg tablet extended release 20 mg PO QAM Qty: 30 0RF Rx Instructions: Take 1 tab each morning in addition to 1 IR tab in the afternoon. aspirin [Adult Aspirin Regimen] 81 mg tablet,delayed release (DR/EC) 81 mg PO DAILY L carnitine 1,000 mg PO .QD vitamin E (dl, acetate) 400 unit capsule 400 unit PO DAILY semaglutide (weight loss) 0.25 mg/0.5 mL pen injector 0.25 mg SUBCUT QWEEK Qty: 6 3RF Rx Instructions: administer weeks 1 through 4 of therapy melatonin 10 mg capsule See Rx Instructions PO BEDTIME PRN (Reason: sleep) Rx Instructions: 288mg orally bedtime PRN; omega-3 fatty acids 1,000 mg capsule 1,400 mg PO DAILY Vitamin D3 5000iu See Rx Instructions .ROUTE .COMPLEX Rx Instructions: Pt takes [id number] daily with K2 supplements; thiamine HCl (vitamin B1) 500 mg tablet 1,500 mg PO DAILY ascorbic acid (vitamin C) 1,000 mg tablet 1,000 mg PO DAILY magnesium malate 850 mg PO DAILY magnesium glycinate 100 mg tablet 400 mg PO DAILY D-Ribose 10 mg powder PO DAILY mecobalamin (vitamin B12) 1,000 mcg tablet,chewable 1,000 mcg PO DAILY turmeric curcumin complex 500 mg PO DAILY acetaminophen 500 mg tablet 500 mg PO Q6H PRN Patient Comments: Patient reports takes 500-1000 mg PRN. coenzyme Q10 100 mg tablet 100 mg PO DAILY All Day Allergy (cetirizine) 10 mg capsule 10 mg PO DAILY PRN (Reason: allergy symptoms) Referrals: Sandra Hussein, [facility] [Primary Care Provider, Family Practice]
[2025-05-17 10:58] LABS: Add Manual Diff / Slide Review NO; Hematocrit 43.4 % (36-46); Hemoglobin 14.7 g/dL (12.0-16.0); Lymphocytes Absolute Auto 4600 /uL (1100-4500); Mean Corpuscular HGB Conc 33.8 % (30-36); Mean Corpuscular Hemoglobin 30.5 PG (26-34); Mean Corpuscular Volume 90.2 fL (80-100); Platelet Count 484 X10^3/uL (150-400)
[2025-05-17 11:04] LABS: INR 0.9 (0.9-1.3); Prothrombin Time 10.7 SECONDS (9.4-12.5)
[2025-05-17 11:07] LABS: PTT Partial Thromboplastin Tim 28 SECONDS (25.1-36.5)
[2025-05-17 11:13] LABS: Alanine Aminotransferase 17 IU/L (<35); Albumin 4.5 g/dL (3.5-5.0); Albumin Globulin Ratio 1.5 (1.0-2.8); Alkaline Phosphatase 38 U/L (38-126); Blood Urea Nitrogen 28 mg/dL (7-17); Calcium 9.4 mg/dL (8.4-10.2); Carbon Dioxide 24 mmol/L (22-32); Chloride 99 mmol/L (98-107); Creatine Kinase 37 U/L (30-135); Estimated Glomerular Filt Rate > 60 mL/min (>60); Globulin 3.1 g/dL (1.7-4.1); Glucose 101 mg/dL (70-99); Lipase 89 U/L (23-300); Magnesium 1.9 mg/dL (1.6-2.3); Potassium 4.3 mmol/L (3.4-5.1); Sodium 133 mmol/L (137-145); Total Protein 7.6 g/dL (6.3-8.2)
[2025-05-17 11:18] LABS: HEMOLYSIS 66 (0-50)
--- NOTE | 2025-05-17 11:43 | PC.NURSE ---
Pt reports multiple ED visits over the last two months for similar episodes of CP. Pt states 10/10 epigastric CP during episodes at rest that quickly resolve. Pt is currently being followed by cardiology and has had negative stress test and echo. New Dx of CAD & PAD. Pt offers her PCP believes the source of the pain to be stomach related but she has not seen GI. Pt is taking acid reducing medication w/o relief. Pt denies being given nitro in past. Today, CP started at 0200 while pt was sleeping. She took 324mg of aspirin and returned to sleep. At 0600 she had a repeat episode of CP and slight SOB, repeated 324mg of aspirin still unrelieved and decided to come to ED for evaluation. Pt is pain free and asymptomatic during triage. NSR on tele w/HR 78.
[2025-05-17 13:05] LABS: NT-proBNP (BNP-Adult 18+) 184 pg/mL (<125); Troponin I 0.018 ng/mL (0.01-0.034)
[2025-05-17 13:49] LABS: Troponin I 0.046 ng/mL (0.01-0.034)
[2025-05-17] MEDS: SODIUM CHLORIDE 0.9% 500 ML 1000 ML IV (14:08)
--- NOTE | 2025-05-17 14:27 | DI.ECHO.S_ITS ---
[facility]+ [facility] : : [address] : : [place] : : [id number] : : Phone: [phone] Echocardiogram Report + + :Name: RUSTY LOPEZ Study Date: 05/17/2025 Height: 65 in : :Hospital ReadingLocation: Weight: 155 lb : : Gender: Female BSA: 1.8 m2 : :: 1960 Age: 64 yrs BP: 115/61 mmHg: :Reason For Study: NSTEMI : :Ordering Physician: JUNAID, : :MARCO Performed By: Naeem Abraham : :Referring: MARCO QUIROGA : + + Interpretation Summary The left ventricle is normal in size. Overall left ventricular systolic function is preserved. There are no obvious focal wall motion abnormalities noted but poor endocardial definition reduces the sensitivity for the detection of such. Procedure: A two-dimensional transthoracic echocardiogram with color flow and Doppler was performed in limited views only to assess WALL MOTION. A contrast injection of Definity was performed to improve assessment of LV function. The study quality was technically difficult. Comparison is made with the echocardiogram of 03/26/2025. The patient was in normal sinus rhythm during the exam. Left Ventricle: The left ventricle is normal in size. There is normal left ventricular wall thickness. Overall left ventricular systolic function is preserved. There are no obvious focal wall motion abnormalities noted but poor endocardial definition reduces the sensitivity for the detection of such. Mitral Valve: There is no mitral regurgitation noted. Aortic Valve: No aortic regurgitation is present. Tricuspid Valve: No tricuspid regurgitation. MMode/2D Measurements & Calculations LVIDd: 3.3 cm LVIDs: 2.3 cm FS: 29.8 % IVSd: 0.88 cm LVPWd: 0.80 cm LV xiao. diameter/BSA (cm/m^2): 1.8 LV sys. diameter/BSA (cm/m^2): 1.3 Reading Physician:04:58 PM
[2025-05-17] MEDS: ACETAMINOPHEN 325 MG TABLET 650 MG PO (15:51)
[2025-05-17 16:37] LABS: Troponin I 0.042 ng/mL (0.01-0.034)
--- NOTE | 2025-05-17 17:02 | EKG_ITS ---
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
[2025-05-17] MEDS: SODIUM CHLORIDE 0.9% 1,000 ML 125 ML IV (22:26)
[2025-05-18] VITALS: PULSE 86; RESP 33; O2SAT 94
== END 2025-05-18 00:46 | disposition short-term general hospital (02) ==
PROVIDERS: Emergency Medicine; Emergency Provider Emergency Medicine; PCP Nurse Practitioner Family
DX: R07.9 Chest pain, unspecified (principal); M79.602 Pain in left arm; M79.601 Pain in right arm; E11.9 Type 2 diabetes mellitus without complications
CPT/HCPCS: 36415; 71045; 80053; 82550; 83690; 83735; 83880; 84484; 85025; 85610; 85730; 93005; 93010; 93307; 96360; 96361; 99284; J7030; J7040; Q9957

== ENCOUNTER → 2025-06-06 07:31 | Outpatient (CLI) | payer OTHER, SELFPAY ==
[2025-04-10 16:27] VITALS: BMI 25.0
--- NOTE | 2025-06-06 07:32 | DI.US.S_ITS ---
PROCEDURE: US PELVIC COMPLETE
== END ==
LOC: US 07:31
PROVIDERS: PCP Nurse Practitioner Family; Referring Provider Nurse Practitioner Family; Visit Provider Emergency Medicine
DX: N95.0 Postmenopausal bleeding (principal); D25.1 Intramural leiomyoma of uterus; N88.8 Other specified noninflammatory disorders of cervix uteri
CPT/HCPCS: 76830; 76856

== ENCOUNTER → 2025-07-08 12:08 | Outpatient (CLI) | payer OTHER, SELFPAY ==
[2025-04-10 16:27] VITALS: BMI 25.0
[2025-07-08 13:30] LABS: Lipase 108 U/L (23-300)
[2025-07-08 13:41] LABS: Appearance Urine UA CLEAR; Bilirubin Urine UA NEGATIVE (NEGATIVE); Color Urine UA YELLOW; Glucose Urine UA NEGATIVE (Negative); Ketones Urine UA 1+ (NEGATIVE); Leukocyte Esterase Urine UA NEGATIVE (NEGATIVE); Nitrite Urine UA POSITIVE (Negative); Occult Blood Urine UA TRACE-INTACT (Negative); Protein Urine UA NEGATIVE (Negative); Specific Gravity Urine UA 1.025 (1.000-1.035); Urobilinogen Urine UA 0.2 E.U./dL (0.2)
[2025-07-08 13:44] LABS: pH Urine UA 6.0 (4.5-8.0)
[2025-07-08 13:47] LABS: Culture Indicated Urine Specimen Cultured
== END ==
PROVIDERS: PCP Nurse Practitioner Family; Referring Provider Nurse Practitioner Family; Visit Provider Physician Assistant
DX: R30.0 Dysuria (principal)
CPT/HCPCS: 36415; 81001; 83690; 86140; 87077; 87086

== ENCOUNTER → 2025-07-11 13:36 | Outpatient (CLI) | payer OTHER, SELFPAY ==
[2025-04-10 16:27] VITALS: BMI 25.0
--- NOTE | 2025-07-11 13:37 | DI.MG.S_ITS ---
MM clip placement LT: 07/11/2025. BI-RADS: None CLINICAL: 64-year old female for left diagnostic mammogram that is a recall from screening on 04/15/2025. Mammogram is performed after US guided biopsy to assess marker location. Tyrer-Cuzick lifetime risk of 6.5%. No personal or first-degree family history of breast cancer. The patient had a prior left breast biopsy. PRIOR EXAMS: Mammogram(s): 05/16/2025, 04/15/2025. Breast Ultrasound(s): 05/16/2025. One Other Exam on 01/10/2023. MAMMOGRAPHY TECHNIQUE: 2D and/or 3D (tomosynthesis) digital mammographic views obtained, with additional images as needed for full coverage. DENSITY Left: C. The breast is heterogeneously dense, which may obscure small masses. OVERALL ASSESSMENT CATEGORY BI-RADS None: This exam requires no BI-RADS. ELECTRONICALLY SIGNED: Dhaval Cornell MD on 07/11/2025 at 07:27:39 PM PT
--- NOTE | 2025-07-11 13:37 | DI.US.S_ITS ---
Left US bx breast perc w vac device: 07/11/2025. CLINICAL: 64-year old female for left procedure that resulted from diagnostic mammogram on 05/16/2025. Tyrer-Cuzick lifetime risk of 6.5%. No personal or first-degree family history of breast cancer. The patient had a prior left breast biopsy. PRIOR EXAMS: Mammogram(s): 07/11/2025, 05/16/2025, 04/15/2025. Breast Ultrasound(s): 05/16/2025. One Other Exam on 01/10/2023. FINDINGS Initial imaging confirmed presence and location of target(s) appropriate for biopsy. CONSENT Risks including but not limited to bleeding and infection, benefits and alternatives were discussed with the patient. The patient agreed to the procedure and signed informed consent. Time out procedure was used. ROUTINE Patient positioned in the supine or supine-oblique position, prepped and draped in the usual manner using sterile technique. TECHNIQUE Left Breast: Outer at 3:00, 6 cm from nipple: Procedure: Ultrasound-guided vacuum-assisted biopsy of a mass with Tumark(R) Vision marker placement. Device: 14-gauge vacuum-assisted biopsy instrument. Marker Placement: Tumark(R) Vision marker placed lateral to margin of target. Conclusion: Ultrasound-guided Vacuum-assisted biopsy with marker placement, Left Breast: Outer at 3:00, 6 cm from nipple PROCEDURE NOTE The breast was compressed to achieve hemostasis. COMPLICATIONS No complications, ESTIMATED BLOOD LOSS < 2ML. DISPOSITION The patient left our department in good condition with aftercare instructions and urged to contact us should any problem arise. SUMMARY Left Breast: Outer at 3:00, 6 cm from nipple: Ultrasound-guided vacuum- assisted biopsy of a mass with Tumark(R) Vision marker placement. ELECTRONICALLY SIGNED: Dhaval Cornell MD on 07/11/2025 at 07:31:48 PM PT
--- NOTE | 2025-07-11 15:07 | PATH_ITS ---
[facility] Accession Number: [id number] No. of containers..01 Tissue . 01 Material submitted: . breast - LT BREAST . 01 Diagnosis: LEFT BREAST MASS, OUTER AT 3 O'CLOCK, 6 CM FROM NIPPLE, IMAGE-GUIDED BIOPSY: Benign breast parenchyma with fibrocystic changes, including focal mild ductal hyperplasia usual-type, and pseudoangiomatous stromal hyperplasia-like changes (PASH-like), please see microscopic description. Negative for epithelial atypia or invasive carcinoma. MRV 07/14/2025 1722 Local . 01 Electronically signed: . Franchesca Gao MD, Pathologist NPI- [id number] . 01 Gross description: . Received in formalin with two patient identifiers, and left breast are three 1.5-1.8 cm yellow-farnsworth fibrofatty tissue fragments, entirely submitted in A1. ([id number]) . . The specimen was placed into formalin at 1415 hours on 07/11/2025 for a total formalin fixation time of 31 hours and 45 minutes. ([id number]) /MRV 07/12/2025 2247 Local . 01 Microscopic: . Initial and deeper levels have been examined and immunostains are performed with the following results: . CK5/6 immunostain shows mosaic-type expression, and Estrogen Receptor immunostain appears variably positive. . These immunohistochemical results support mild ductal hyperplasia without atypia, usual-type. . The areas of fibrosis and pseudoangiomatous stromal hyperplasia-like changes are highlighted by CD31 immunostain. In those areas DESMOND immunostain is negative, arguing against invasive tumor. . P63 immunostain is positive around the ducts, supporting benign breast tissue and arguing against invasive carcinoma. . Overall, the findings are consistent with benign breast tissue. . Clinical and radiologic correlation is recommended to ensure that the area of concern has been adequately sampled. . As part of ongoing director quality assurance, this case is also reviewed by Dr. Nery Silva, who agrees with the interpretation. . * This test was developed and the performance characteristics were validated by [facility]. It has not been cleared or approved by the U.S. Food and Drug Administration. . 01 Pathologist provided ICD-10: N63.23 . 01 CPT . 081635, [id number], [id number] Specimen Comment: A courtesy copy of this report has been sent to [facility] Pathology Performed at: [address] [address], [place], [place] [id number] MD Curtis España MD Phone: [phone]
[2025-07-16 21:10] LABS: H. Pylori Antigen Stool Negative (Negative)
== END ==
PROVIDERS: PCP Nurse Practitioner Family; Referring Provider Nurse Practitioner Family; Visit Provider Nurse Practitioner Family
DX: N60.12 Diffuse cystic mastopathy of left breast (principal); N63.23 Unspecified lump in the left breast, lower outer quadrant; R92.332 Mammographic heterogeneous density, left breast; R14.0 Abdominal distension (gaseous); R14.2 Eructation; R14.3 Flatulence
CPT/HCPCS: 19083; 77065; 87338